=== PATIENT | male | born 1980 | race Caucasian/White ===

== ENCOUNTER 2016-08-20 17:55 | Emergency (ER) | payer OTHER ==
[2016-08-20] MEDS ORDERED: SODIUM CHLORIDE 0.9% 1,000 ML IV ONE (19:16)
[2016-08-20 19:27] LABS: Glucose,Whole Blood 115 mg/dL (75-99)
[2016-08-20 19:49] LABS: Basophils # (A) 0.1 k/uL (0-0.2); Basophils % (A) 1 %; CH 31.3; CHCM 34.1; Eosinophils # (A) 0.2 k/uL (0-0.7); Eosinophils % (A) 2 %; HCT 45.9 % (39.0-53.0); HDW 2.36; Luc # (Auto) 0.16; Luc % (Auto) 2; Lymphocytes % (A) 30 %; MCH 30.1 pg (25.0-35.0); MCHC 32.6 g/dL (31.0-37.0); MCV 92.3 fL (80.0-100.0); Mean Platelet Volume 7.4; Monocytes # (A) 0.7 k/uL (0-1.0); Monocytes % (A) 7 %; Neutrophils # (A) 5.9 k/uL (1.3-7.7); Neutrophils % (A) 58 %; RBC 4.97 m/uL (4.30-5.90); RDW 13.6 % (11.5-15.5); WBC 10.1 k/uL (3.8-10.6); WBC (Perox) 9.74
--- NOTE | 2016-08-20 19:49 | ED ---
General Adult HPI - General Chief complaint: Recheck/Abnormal Lab/Rx Stated complaint: alter mental status Time Seen by Provider: 08/20/16 18:52 Source: patient, family, RN notes reviewed Mode of arrival: ambulatory Limitations: no limitations - History of Present Illness Initial comments: Patient is a 35-year-old male presenting to the with chief complaint of altered mental status for approximately one day. Patient's mother and patient reports that he has recently switched on amitriptyline approximately one week ago to manage his bipolar depression. He states these been taking the medication as directed. He also takes Ativan and Effexor and he is concerned that his new addition of amitriptyline has caused an adverse side effect. Patient's mother reports that when she was sitting and talking to occasionally start talking the random subjects such as harming celebrity Paty Bazan. Patient's mother reports that he will have abnormal conversations with him will switch back to normal conversation. Patient also started to go on tangents about her complaints is having. He reported that he did have blood in his urine approximately 2 days ago he is concerned he had some kidney problems since starting his new medications. Reports she's had a history of kidney stones. He denies any abdominal pain or dysuria or hematuria today. Patient denies any suicidal or homicidal ideations. - Related Data Home Medications Medication Instructions Recorded Confirmed Benzocaine/Menthol Lozeng [Cepacol 1 lozenge MUCOUS MEM Q4HR PRN 08/20/16 lozenge] Multivitamins, Thera [Multivitamin] 1 tab PO DAILY 08/20/16 08/20/16 Previous Rx's Medication Instructions Recorded Amitriptyline HCl [Elavil] 10 mg PO ACHS #120 tab 08/08/16 Dicyclomine [Bentyl] 10 mg PO TID cap 08/08/16 LORazepam [Ativan] 0.5 mg PO ACHS #120 tab 08/08/16 Loperamide [Imodium] 2 mg PO QID PRN #30 cap 08/08/16 Losartan [Cozaar] 50 mg PO DAILY #30 tab 08/08/16 Venlafaxine HCl ER [Effexor XR] 75 mg PO DAILY #30 cap.er.24h 08/08/16 cloNIDine HCL [Catapres] 0.1 mg PO DAILY PRN #30 tab 08/08/16 Ketorolac [Toradol] 10 mg PO Q6HR #12 tab 08/20/16 Tamsulosin [Flomax] 0.4 mg PO DAILY #4 cap 08/20/16 Allergies Allergy/AdvReac Type Severity Reaction Status Date / Time cephalexin [From Keflex] Allergy Swelling Verified 08/20/16 19:56 hydrocodone Allergy Itching Verified 08/20/16 19:56 metaxalone [From Skelaxin] Allergy Rash/Hives Verified 08/20/16 19:56 NSAIDS (Non-Steroidal Allergy Rash/Hives Verified 08/20/16 19:56 Anti-Inflamma vancomycin Allergy Rash/Hives Verified 08/20/16 19:56 gabapentin AdvReac Unknown Verified 08/20/16 19:56 sulfamethoxazole AdvReac Nausea & Verified 08/20/16 19:56 [From Bactrim] Vomiting tramadol AdvReac Confusion Verified 08/20/16 19:56 trimethoprim [From Bactrim] AdvReac Nausea & Verified 08/20/16 19:56 Vomiting TIDE Allergy Dyspnea Uncoded 08/20/16 18:51 DUST AdvReac Mild Sneezing Uncoded 08/20/16 19:56 Review of Systems ROS Statement: Those systems with pertinent positive or pertinent negative responses have been documented in the HPI. ROS Other: All systems not noted in ROS Statement are negative. 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 POSSIBLE HEMORRHOIDS Past Anesthesia/Blood Transfusion Reactions: Motion Sickness Past Psychological History: ADD/ADHD, Anxiety, Depression, PTSD Additional Psychological History / Comment(s): HX OF DEPRESSION EPISODE R/T REACTION TO [facility], TRANSFERRED TO [facility]. Anxiety, Hx of attempted suicide by OD. Patient sees Dr. Cutler at [facility]. Smoking Status: Current every day smoker Past Alcohol Use History: Occasional Additional Past Alcohol Use History / Comment(s): Patient states he IS ON ANTABUSE LAST DRINK ABOUT 2 MONTHS AGO. HX OF ETOH ABUSE Patient smokes 1 pack per day for 14 years. Past Drug Use History: None Reported Additional Drug Use History / Comment(s): 12/04/13 DRUG OD ON TRAMADOL. - Past Family History Father Family Medical History: Coronary Artery Disease (CAD), Myocardial Infarction ([place] ) Additional Family Medical History / Comment(s): Father is 60 years of age and is status post 4 vessel CABG. Mother Family Medical History: No Reported History Additional Family Medical History / Comment(s): Mother is alive at age 72. General Exam - General Exam Comments Initial Comments: Patient is a anxious appearing 35-year-old male. He does not appear to be in any acute distress. Limitations: no limitations General appearance: alert, in no apparent distress Head exam: Present: atraumatic, normocephalic, normal inspection Eye exam: Present: normal appearance, EOMI, other (pinpoint pupils). Absent: scleral icterus, conjunctival injection, periorbital swelling ENT exam: Present: normal exam, normal oropharynx, mucous membranes moist, TM's normal bilaterally Neck exam: Present: normal inspection. Absent: tenderness, meningismus, lymphadenopathy Respiratory exam: Present: normal lung sounds bilaterally. Absent: respiratory distress, wheezes, rales, rhonchi, stridor Cardiovascular Exam: Present: regular rate, normal rhythm, normal heart sounds. Absent: systolic murmur, diastolic murmur, rubs, gallop, clicks GI/Abdominal exam: Present: soft, normal bowel sounds. Absent: distended, tenderness, guarding, rebound, rigid Extremities exam: Present: normal inspection, full ROM, normal capillary refill. Absent: tenderness, pedal edema, joint swelling, calf tenderness Back exam: Present: normal inspection Neurological exam: Present: alert, oriented X3, CN II-XII intact Psychiatric exam: Present: normal affect, normal mood Skin exam: Present: warm, dry, intact, normal color. Absent: rash Course Vital Signs 08/20/16 08/20/16 08/20/16 18:48 19:10 21:14 Temperature 97.0 F L Pulse Rate 118 H 91 Pulse Rate [ 118 H Roll Handler ] Respiratory 20 18 Rate Blood Pressure 141/75 126/75 O2 Sat by Pulse 98 96 Oximetry 08/20/16 22:30 Temperature 97 F L Pulse Rate 87 Pulse Rate [ Roll Handler ] Respiratory 20 Rate Blood Pressure 146/84 O2 Sat by Pulse 98 Oximetry - Reevaluation(s) Reevaluation #1: 08/20/16 20:19 Patient was reevaluated and states that he feels extremely tired. He states that he has been feeling in and out of it. 08/20/16 20:20 Medical Decision Making - Medical Decision Making Patient is a 35 year old male with one day of intermittent abnormal conversations and tangents which he is concerned is caused from taking his amitriptyline. Patient reports he has not had any other drugs and denies alcohol use. He states he has bipolar disorder and recently started amitriptiline. Patient also reports some complaints of blood in his urine. PAtient lab work is negative besides urinalysis. Patient's urinalysis did show moderate blood in the urine. Patient reports that he has a history of kidney stones. He will be discharged with flomax and toradol. I do not want to prescribe narcotics at this time due to the fact that narcotics could interfer with mental status changes as well. Patient had lucid conversations while in the [facility], but would go on tangents. It is likely that patient is suffering from a hypomanic state. EPS was called to evaluate patient and psychiatrist recommends to follow up with counselor tomorrow and to discontinue amitriptiline. Patient has an appointment with psychiatrist to adjust mediactions. Patient will be discharged and understands treatment plan and will comply. - Lab Data Result diagrams: 08/20/16 19:25 08/20/16 19:25 Lab Results 08/20/16 08/20/16 08/20/16 Range/Units 19:20 19:25 19:25 WBC 10.1 (3.8-10.6) k/uL RBC 4.97 (4.30-5.90) m/uL Hgb 15.0 (13.0-17.5) gm/dL Hct 45.9 (39.0-53.0) % MCV 92.3 (80.0-100.0) fL MCH 30.1 (25.0-35.0) pg MCHC 32.6 (31.0-37.0) g/dL RDW 13.6 (11.5-15.5) % Plt Count 248 (150-450) k/uL Neutrophils % 58 % Lymphocytes % 30 % Monocytes % 7 % Eosinophils % 2 % Basophils % 1 % Neutrophils # 5.9 (1.3-7.7) k/uL Lymphocytes # 3.0 (1.0-4.8) k/uL Monocytes # 0.7 (0-1.0) k/uL Eosinophils # 0.2 (0-0.7) k/uL Basophils # 0.1 (0-0.2) k/uL Sodium 140 (137-145) mmol/L Potassium 3.8 (3.5-5.1) mmol/L Chloride 101 (98-107) mmol/L Carbon Dioxide 25 (22-30) mmol/L Anion Gap 14 mmol/L BUN 11 (9-20) mg/dL Creatinine 0.90 (0.66-1.25) mg/dL Est GFR (MDRD) Af Amer >60 (>60 ml/min/1.73 sqM) Est GFR (MDRD) Non-Af >60 (>60 ml/min/1.73 sqM) Glucose 116 H (74-99) mg/dL POC Glucose (mg/dL) 115 H (75-99) mg/dL POC Glu Boat [employer]her ID [place] Calcium 9.9 (8.4-10.2) mg/dL Total Bilirubin 0.5 (0.2-1.3) mg/dL AST 22 (17-59) U/L ALT 35 (21-72) U/L Alkaline Phosphatase 69 (38-126) U/L Total Protein 6.8 (6.3-8.2) g/dL Albumin 4.5 (3.5-5.0) g/dL Urine Color Urine Appearance (Clear) Urine pH (5.0-8.0) Ur Specific [place] (1.001-1.035) Urine Protein (Negative) Urine Glucose (UA) (Negative) Urine Ketones (Negative) Urine Blood (Negative) Urine Nitrate (Negative) Urine Bilirubin (Negative) Urine Urobilinogen (<2.0) mg/dL Ur Leukocyte Esterase (Negative) Urine RBC (0-5) /hpf Urine WBC (0-5) /hpf Urine Bacteria (None) /hpf Urine Mucus (None) /hpf Urine Opiates Screen (NotDetected) Ur Oxycodone Screen (NotDetected) Urine Methadone Screen (NotDetected) Ur Propoxyphene Screen (NotDetected) Ur Barbiturates Screen (NotDetected) U Tricyclic Antidepress (NotDetected) Ur Phencyclidine Scrn (NotDetected) Ur Amphetamines Screen (NotDetected) U Methamphetamines Scrn (NotDetected) U Benzodiazepines Scrn (NotDetected) Urine Cocaine Screen (NotDetected) U Marijuana (THC) Screen (NotDetected) 08/20/16 Range/Units 19:25 WBC (3.8-10.6) k/uL RBC (4.30-5.90) m/uL Hgb (13.0-17.5) gm/dL Hct (39.0-53.0) % MCV (80.0-100.0) fL MCH (25.0-35.0) pg MCHC (31.0-37.0) g/dL RDW (11.5-15.5) % Plt Count (150-450) k/uL Neutrophils % % Lymphocytes % % Monocytes % % Eosinophils % % Basophils % % Neutrophils # (1.3-7.7) k/uL Lymphocytes # (1.0-4.8) k/uL Monocytes # (0-1.0) k/uL Eosinophils # (0-0.7) k/uL Basophils # (0-0.2) k/uL Sodium (137-145) mmol/L Potassium (3.5-5.1) mmol/L Chloride (98-107) mmol/L Carbon Dioxide (22-30) mmol/L Anion Gap mmol/L BUN (9-20) mg/dL Creatinine (0.66-1.25) mg/dL Est GFR (MDRD) Af Amer (>60 ml/min/1.73 sqM) Est GFR (MDRD) Non-Af (>60 ml/min/1.73 sqM) Glucose (74-99) mg/dL POC Glucose (mg/dL) (75-99) mg/dL POC Glu Boat Washer ID Calcium (8.4-10.2) mg/dL Total Bilirubin (0.2-1.3) mg/dL AST (17-59) U/L ALT (21-72) U/L Alkaline Phosphatase (38-126) U/L Total Protein (6.3-8.2) g/dL Albumin (3.5-5.0) g/dL Urine Color Light Yellow Urine Appearance Clear (Clear) Urine pH 5.5 (5.0-8.0) Ur Specific [place] 1.004 (1.001-1.035) Urine Protein Negative (Negative) Urine Glucose (UA) Negative (Negative) Urine Ketones Negative (Negative) Urine Blood Moderate H (Negative) Urine Nitrate Negative (Negative) Urine Bilirubin Negative (Negative) Urine Urobilinogen <2.0 (<2.0) mg/dL Ur Leukocyte Esterase Negative (Negative) Urine RBC 4 (0-5) /hpf Urine WBC 1 (0-5) /hpf Urine Bacteria Rare H (None) /hpf Urine Mucus Rare H (None) /hpf Urine Opiates Screen Not Detected (NotDetected) Ur Oxycodone Screen Not Detected (NotDetected) Urine Methadone Screen Not Detected (NotDetected) Ur Propoxyphene Screen Not Detected (NotDetected) Ur Barbiturates Screen Not Detected (NotDetected) U Tricyclic Antidepress Not Detected (NotDetected) Ur Phencyclidine Scrn Not Detected (NotDetected) Ur Amphetamines Screen Not Detected (NotDetected) U Methamphetamines Scrn Not Detected (NotDetected) U Benzodiazepines Scrn Detected H (NotDetected) Urine Cocaine Screen Not Detected (NotDetected) U Marijuana (THC) Screen Not Detected (NotDetected) 08/20/16 20:23 EKG shows sinus tachycardia. Ventricular 105 bpm. MA interval 132 ms. QRS duration 90 ms. No evidence of ST elevation or T-wave inversion. No evidence of atrial or ventricular arrhythmias. - Radiology Data Radiology results: report reviewed KUB and chest x-ray showed no evidence of any acute process. Disposition Clinical Impression: Altered awareness, transient, History of kidney stones Disposition: HOME SELF-CARE Condition: Good Instructions: Altered Mental Status (ED), Kidney Stones (ED) Additional Instructions: Patient started to discontinue Elavil. Follow-up with counselor tomorrow. Psychiatrist as directed. Return to the [facility] if any alarming signs or symptoms occur. Take Flomax and Toradol as directed. Prescriptions: Ketorolac [Toradol] 10 mg PO Q6HR #12 tab Tamsulosin [Flomax] 0.4 mg PO DAILY #4 cap Referrals: None,Stated [Primary Care Provider] - 1-2 days Time of Disposition: 22:18
[2016-08-20 19:58] LABS: Appearance,Urine Clear (Clear); Bacteria,Urine Rare /hpf; Bilirubin,Urine Negative (Negative); Glucose,Urine (UA) Negative (Negative); Ketones,Urine Negative (Negative); Leukocyte Esterase,Urine Negative (Negative); Mucus,Urine Rare /hpf; Nitrite,Urine Negative (Negative); PH, Urine 5.5 (5.0-8.0); Particle Count 1142; Protein,Urine Negative (Negative); RBC,Urine 4 /hpf (0-5); Specific Gravity,Urine 1.004 (1.001-1.035); UA Billing (MACRO vs. MICRO) MICRO; Urobilinogen,Urine <2.0 mg/dL (<2.0); WBC,Urine 1 /hpf (0-5)
[2016-08-20 19:59] LABS: ALT 35 U/L (21-72); AST 22 U/L (17-59); Alkaline Phosphatase 69 U/L (38-126); Anion Gap 14 mmol/L; Blood Urea Nitrogen 11 mg/dL (9-20); Calcium 9.9 mg/dL (8.4-10.2); Carbon Dioxide 25 mmol/L (22-30); Chloride 101 mmol/L (98-107); Glucose 116 mg/dL (74-99); Non-African American GFR(MDRD) >60 (>60 ml/min/1.73 sqM); Potassium 3.8 mmol/L (3.5-5.1); Sodium 140 mmol/L (137-145); Total Bilirubin 0.5 mg/dL (0.2-1.3); Total Protein 6.8 g/dL (6.3-8.2)
--- NOTE | 2016-08-20 20:13 | XR ---
EXAMINATION TYPE: XR chest 2V DATE OF EXAM: 08/20/2016 8:05 PM COMPARISON: September 26, 2015 HISTORY: Shortness of breath TECHNIQUE: Frontal and lateral views of the chest are obtained. FINDINGS: There is no focal air space opacity, pleural effusion, or pneumothorax seen. The cardiac silhouette size is within normal limits. The osseous structures are intact. IMPRESSION: No acute cardiopulmonary process.
--- NOTE | 2016-08-20 20:14 | XR ---
EXAMINATION TYPE: XR KUB DATE OF EXAM: 08/20/2016 8:05 PM COMPARISON: April 06, 2016 HISTORY: Pain TECHNIQUE: Single supine KUB image of the abdomen is obtained FINDINGS: Small bowel demonstrates no evidence for dilatation or air fluid levels. Gas and fecal material is seen in non-distended colon. No convincing evidence for pneumoperitoneum. No unusual calcifications. The lung bases are clear. The osseous structures are intact. IMPRESSION: 1. Overall nonobstructive bowel gas pattern.
[2016-08-20] MEDS ORDERED: KETOROLAC 30 MG/ML 1 ML VIAL IVP STA (22:29)
[2016-08-20 22:48] VITALS: BP 146/84; PULSE 87; RESP 20; TEMP 97
== END 2016-08-20 22:30 | disposition home or self-care (01) ==
LOC: EC 17:55
DX: R40.4 Transient alteration of awareness (principal); F31.9 Bipolar disorder, unspecified; R31.9 Hematuria, unspecified; Z87.442 Personal history of urinary calculi; F17.200 Nicotine dependence, unspecified, uncomplicated; I10 Essential (primary) hypertension; F41.9 Anxiety disorder, unspecified; F43.10 Post-traumatic stress disorder, unspecified; Z79.899 Other long term (current) drug therapy; Z88.1 Allergy status to other antibiotic agents; Z88.2 Allergy status to sulfonamides; Z88.5 Allergy status to narcotic agent; Z88.6 Allergy status to analgesic agent; Z88.8 Allergy status to other drugs, medicaments and biological substances; Z86.14 Personal history of Methicillin resistant Staphylococcus aureus infection
CPT/HCPCS: 36415; 71020; 74000; 80053; 80306; 81001; 82075; 85025; 93005; 96360; 99285

== ENCOUNTER 2016-09-05 11:52 | Emergency (ER) | payer OTHER ==
[2016-09-05 12:00] VITALS: RESP 18; TEMP 98
--- NOTE | 2016-09-05 13:16 | XR ---
EXAMINATION TYPE: XR chest 2V DATE OF EXAM: 09/05/2016 12:56 PM COMPARISON: 08/20/16 HISTORY: cough TECHNIQUE: Frontal and lateral views of the chest are obtained. FINDINGS: There is no focal air space opacity, pleural effusion, or pneumothorax seen. The cardiac silhouette size is within normal limits. The osseous structures are intact. IMPRESSION: No acute cardiopulmonary process.
--- NOTE | 2016-09-05 13:18 | ED ---
General Adult HPI - General Chief complaint: Recheck/Abnormal Lab/Rx Stated complaint: POSS OVERDOSE Time Seen by Provider: 09/05/16 12:05 Source: patient, RN notes reviewed Mode of arrival: ambulatory Limitations: no limitations - History of Present Illness Initial comments: Patient is a 35-year-old male who presents emergency room today with multiple complaints. Patient does admit to cough congestion over the last 7 days. He does admit to sputum production as been yellow in color. He states he wanted to have this checked out. He also admits that he comes from his psychiatrist office was given a prescription for Ativan 0.5 mg. Patient states he took 2 pills and did not like how it made him feel. He states that he felt forgetful and out of it. Patient states he just had this prescription filled today. Patient denies any other complains. Patient's mother did give further information away from bedside stating that he has prescription filled yesterday 120 and had taken the entire bottle. States that he was very forgetful and acting unusual yesterday. States Dr. Pope office did notify her to bring him here in the emergency room for evaluation. Patient denies any recent fever, chills, shortness of breath, chest pain, back pain, abdominal pain, nausea or vomiting, numbness or tingling, dysuria or hematuria, constipation or diarrhea, headaches or visual changes, or any other complaints. - Related Data Home Medications Medication Instructions Recorded Confirmed LORazepam [Ativan] 0.5 mg PO TID 09/05/16 09/05/16 cloNIDine HCL [Catapres] 0.1 mg PO DAILY 09/05/16 09/05/16 Previous Rx's Medication Instructions Recorded Loperamide [Imodium] 2 mg PO QID PRN #30 cap 08/08/16 Losartan [Cozaar] 50 mg PO DAILY #30 tab 08/08/16 Venlafaxine HCl ER [Effexor XR] 75 mg PO DAILY #30 cap.er.24h 08/08/16 Tamsulosin [Flomax] 0.4 mg PO DAILY #4 cap 08/20/16 Allergies Allergy/AdvReac Type Severity Reaction Status Date / Time cephalexin [From Keflex] Allergy Swelling Verified 09/05/16 12:17 hydrocodone Allergy Itching Verified 09/05/16 12:17 metaxalone [From Skelaxin] Allergy Rash/Hives Verified 09/05/16 12:17 NSAIDS (Non-Steroidal Allergy Rash/Hives Verified 09/05/16 12:17 Anti-Inflamma vancomycin Allergy Rash/Hives Verified 09/05/16 12:17 gabapentin AdvReac Unknown Verified 09/05/16 12:17 sulfamethoxazole AdvReac Nausea & Verified 09/05/16 12:17 [From Bactrim] Vomiting tramadol AdvReac Confusion Verified 09/05/16 12:17 trimethoprim [From Bactrim] AdvReac Nausea & Verified 09/05/16 12:17 Vomiting TIDE Allergy Dyspnea Uncoded 09/05/16 12:00 DUST AdvReac Mild Sneezing Uncoded 09/05/16 12:00 Review of Systems ROS Statement: Those systems with pertinent positive or pertinent negative responses have been documented in the HPI. ROS Other: All systems not noted in ROS Statement are negative. Past Medical History Past Medical History: Hypertension, Musculoskeletal Disorder, Seizure Disorder Additional Past Medical History / Comment(s): HX SEIZURE X2, D/T LOW K+ LEVEL 2012 AND SEIZURE 2013., KIDNEY STONE, BACK PAIN, MOUTH TUMORS, degenerative disc disease of the cervical spine History of Any Multi-Drug Resistant Organisms: MRSA Date of last positivie culture/infection: 06/19/16 MDRO Source:: right leg Past Surgical History: Cholecystectomy, Hernia Repair Additional Past Surgical History / Comment(s): 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 POSSIBLE HEMORRHOIDS Past Anesthesia/Blood Transfusion Reactions: Motion Sickness Past Psychological History: ADD/ADHD, Anxiety, Depression, PTSD Additional Psychological History / Comment(s): HX OF DEPRESSION EPISODE R/T REACTION TO [facility], TRANSFERRED TO [facility]. Anxiety, Hx of attempted suicide by OD. Patient sees Dr. Cutler at [facility]. Smoking Status: Current every day smoker Past Alcohol Use History: Occasional Additional Past Alcohol Use History / Comment(s): Patient states he IS ON ANTABUSE LAST DRINK ABOUT 2 MONTHS AGO. HX OF ETOH ABUSE Patient smokes 1 pack per day for 14 years. Past Drug Use History: None Reported Additional Drug Use History / Comment(s): 12/04/13 DRUG OD ON TRAMADOL. - Past Family History Father Family Medical History: Coronary Artery Disease (CAD), Myocardial Infarction ([place] ) Additional Family Medical History / Comment(s): Father is 60 years of age and is status post 4 vessel CABG. Mother Family Medical History: No Reported History Additional Family Medical History / Comment(s): Mother is alive at age 72. General Exam - General Exam Comments Initial Comments: General: The patient is awake and alert, in no distress, and does not appear acutely ill. Eye: Pupils are equal, round and reactive to light, extra-ocular movements are intact. No nystagmus. There is normal conjunctiva bilaterally. No signs of icterus. Ears, nose, mouth and throat: There are moist mucous membranes and no oral lesions. Neck: The neck is supple, there is no tenderness or JVD. Cardiovascular: There is a regular rate and rhythm. No murmur, rub or gallop is appreciated. Respiratory: Lungs are clear to auscultation, respirations are non-labored, breath sounds are equal. No wheezes, stridor, rales, or rhonchi. Gastrointestinal: Soft, non-distended, non-tender abdomen without masses or organomegaly noted. There is no rebound or guarding present. No CVA tenderness. Bowel sounds are unremarkable. Musculoskeletal: Normal ROM, no tenderness. Strength 5/5. Sensation intact. Pulses equal bilaterally 2+. Neurological: A&O x 3. CN II-XII intact, There are no obvious motor or sensory deficits. Coordination appears grossly intact. Speech is normal. Skin: Skin is warm and dry and no rashes or lesions are noted. Psychiatric: Cooperative. Limitations: no limitations Course Vital Signs 09/05/16 09/05/16 11:55 13:00 Temperature 98.0 F Pulse Rate 121 H Respiratory 18 Rate Blood Pressure 136/62 168/88 O2 Sat by Pulse 98 Oximetry Medical Decision Making - Medical Decision Making Patient has been seen here in the emergency room by mental health. They recommend the patient can follow-up with the outpatient. They believe it is a substance abuse issue. Patient is not suicidal. He is requesting pain medication here in the emergency room. Patient advised that we cannot give him any narcotics. Patient will be discharged home. Disposition Clinical Impression: Substance abuse Disposition: HOME SELF-CARE Condition: Good Instructions: Polysubstance Abuse (ED) Additional Instructions: Please follow-up with psychiatrist as discussed. Please follow-up family doctor over the next 2 days for any pain medicines as needed. Please return to emergency room if any symptoms increase or worsen or for any other concerns. Time of Disposition: 15:30
[2016-09-05 15:50] VITALS: BP 135/83; PULSE 103
== END 2016-09-05 15:49 | disposition home or self-care (01) ==
LOC: EC 11:52
DX: F19.10 Other psychoactive substance abuse, uncomplicated (principal); I10 Essential (primary) hypertension; G40.909 Epilepsy, unspecified, not intractable, without status epilepticus; F41.9 Anxiety disorder, unspecified; F90.9 Attention-deficit hyperactivity disorder, unspecified type; F17.200 Nicotine dependence, unspecified, uncomplicated; Z79.899 Other long term (current) drug therapy; Z88.5 Allergy status to narcotic agent; Z88.8 Allergy status to other drugs, medicaments and biological substances; Z88.2 Allergy status to sulfonamides; Z91.048 Other nonmedicinal substance allergy status; Z88.1 Allergy status to other antibiotic agents
CPT/HCPCS: 71020; 80306; 82075; 99283

== ENCOUNTER 2016-10-02 19:55 | Inpatient (IN) | payer MEDICAID, OTHER ==
--- NOTE | 2016-10-02 20:26 | ED ---
Psych HPI - General Chief Complaint: Psychiatric Symptoms Stated Complaint: Suicidal Time Seen by Provider: 10/02/16 20:04 Source: patient Mode of arrival: ambulatory - History of Present Illness Initial Comments: This patient is a 35-year-old man who presents because he has been having some suicidal ideation. Patient states that he has history of previous prescription medication addiction, and he is concerned that he is having a recurrence of this. Patient states that earlier in the morning he was feeling very depressed and in fact suicidal. The patient states that he left his home and [place] to [place] with the thought that he may jump in. The patient states that his mother however had followed him and prevented him from doing so. MD Complaint: suicidal ideation, feels depressed -: days(s) Associated Psychiatric Symptoms: depression, suicidal ideation History of same: Yes Quality: constant Improves With: none Worsens With: drug use Context: recent drug abuse Associated Symptoms: denies other symptoms Treatments Prior to Arrival: none If Self Harm: has plan - Related Data Home Medications Medication Instructions Recorded Confirmed LORazepam [Ativan] 0.5 mg PO Q6H PRN 09/05/16 10/03/16 cloNIDine HCL [Catapres] 0.1 mg PO HS 09/05/16 10/03/16 Amoxicillin 500 mg PO Q12HR 10/02/16 10/02/16 Venlafaxine HCl [Effexor XR] 37.5 mg PO DAILY 10/02/16 10/03/16 traMADol HCL [Ultram] 50 mg PO Q6H PRN 10/02/16 10/03/16 Previous Rx's Medication Instructions Recorded Loperamide [Imodium] 2 mg PO QID PRN #30 cap 08/08/16 Losartan [Cozaar] 50 mg PO DAILY #30 tab 08/08/16 Tamsulosin [Flomax] 0.4 mg PO DAILY #4 cap 08/20/16 Allergies Allergy/AdvReac Type Severity Reaction Status Date / Time cephalexin [From Keflex] Allergy Swelling Verified 10/03/16 03:08 hydrocodone Allergy Itching Verified 10/03/16 03:08 metaxalone [From Skelaxin] Allergy Rash/Hives Verified 10/03/16 03:08 NSAIDS (Non-Steroidal Allergy Rash/Hives Verified 10/03/16 03:08 Anti-Inflamma vancomycin Allergy Rash/Hives Verified 10/03/16 03:08 gabapentin AdvReac Unknown Verified 10/03/16 03:08 sulfamethoxazole AdvReac Nausea & Verified 10/03/16 03:08 [From Bactrim] Vomiting trimethoprim [From Bactrim] AdvReac Nausea & Verified 10/03/16 03:08 Vomiting TIDE Allergy Dyspnea Uncoded 10/03/16 03:08 DUST AdvReac Mild Sneezing Uncoded 10/03/16 03:08 Review of Systems ROS Statement: Those systems with pertinent positive or pertinent negative responses have been documented in the HPI. ROS Other: All systems not noted in ROS Statement are negative. Constitutional: Denies: fever, weakness Respiratory: Denies: cough, dyspnea Cardiovascular: Denies: chest pain, syncope Gastrointestinal: Denies: abdominal pain, vomiting, diarrhea Musculoskeletal: Denies: back pain Skin: Denies: rash Neurological: Denies: headache, weakness, numbness Psychiatric: Reports: anxiety, depression, suicidal thoughts. 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 POSSIBLE HEMORRHOIDS Past Anesthesia/Blood Transfusion Reactions: Motion Sickness Past Psychological History: ADD/ADHD, Anxiety, Depression, PTSD Additional Psychological History / Comment(s): HX OF DEPRESSION EPISODE R/T REACTION TO [facility], TRANSFERRED TO [facility]. Anxiety, Hx of attempted suicide by OD. Patient sees Dr. Cutler at [facility]. Smoking Status: Current every day smoker Past Alcohol Use History: Occasional Additional Past Alcohol Use History / Comment(s): Patient states he IS ON ANTABUSE LAST DRINK ABOUT 2 MONTHS AGO. HX OF ETOH ABUSE Patient smokes 1 pack per day for 14 years. Past Drug Use History: None Reported Additional Drug Use History / Comment(s): 12/04/13 DRUG OD ON TRAMADOL. - Past Family History Father Family Medical History: Coronary Artery Disease (CAD), Myocardial Infarction ([place] ) Additional Family Medical History / Comment(s): Father is 60 years of age and is status post 4 vessel CABG. Mother Family Medical History: No Reported History Additional Family Medical History / Comment(s): Mother is alive at age 72. General Exam Limitations: no limitations General appearance: alert, anxious Head exam: Present: atraumatic, normocephalic Eye exam: Present: normal appearance. Absent: scleral icterus, conjunctival injection Respiratory exam: Present: normal lung sounds bilaterally. Absent: respiratory distress, wheezes, rales, rhonchi, stridor Cardiovascular Exam: Present: regular rate, normal rhythm, normal heart sounds. Absent: systolic murmur, diastolic murmur, rubs, gallop GI/Abdominal exam: Present: soft. Absent: distended, tenderness, guarding Extremities exam: Present: normal inspection Neurological exam: Present: alert, normal gait Psychiatric exam: Present: depressed, anxious, suicidal ideation. Absent: agitated, flat affect, manic, homicidal ideation Skin exam: Present: warm, dry, intact, normal color. Absent: rash Course Vital Signs 10/02/16 10/02/16 19:59 23:30 Temperature 99 F 98.9 F Pulse Rate 99 Pulse Rate [ 112 H Right] Respiratory 16 20 Rate Blood Pressure 143/77 Blood Pressure 154/104 [Right Arm] O2 Sat by Pulse 100 Oximetry Medical Decision Making - Lab Data Lab Results 10/02/16 10/02/16 Range/Units 20:30 20:30 Urine Color Yellow Urine Appearance Clear (Clear) Urine pH 5.5 (5.0-8.0) Ur Specific [place] 1.016 (1.001-1.035) Urine Protein Negative (Negative) Urine Glucose (UA) Negative (Negative) Urine Ketones Negative (Negative) Urine Blood Small H (Negative) Urine Nitrate Negative (Negative) Urine Bilirubin Negative (Negative) Urine Urobilinogen <2.0 (<2.0) mg/dL Ur Leukocyte Esterase Trace H (Negative) Urine RBC <1 (0-5) /hpf Urine WBC 1 (0-5) /hpf Amorphous Sediment Rare H (None) /hpf Urine Mucus Rare H (None) /hpf Urine Opiates Screen Detected H (NotDetected) Ur Oxycodone Screen Not Detected (NotDetected) Urine Methadone Screen Not Detected (NotDetected) Ur Propoxyphene Screen Not Detected (NotDetected) Ur Barbiturates Screen Not Detected (NotDetected) U Tricyclic Antidepress Not Detected (NotDetected) Ur Phencyclidine Scrn Not Detected (NotDetected) Ur Amphetamines Screen Not Detected (NotDetected) U Methamphetamines Scrn Not Detected (NotDetected) U Benzodiazepines Scrn Detected H (NotDetected) Urine Cocaine Screen Not Detected (NotDetected) U Marijuana (THC) Screen Not Detected (NotDetected) Disposition Clinical Impression: Suicidal ideation, Depression Disposition: ADMITTED IP TO THIS HOSP Condition: Fair
[2016-10-02] MEDS ORDERED: LORazepam 1 MG TAB PO STA (21:16)
[2016-10-02] MEDS ORDERED: ZIPRASIDONE 20 MG VIAL IM PRN (22:34)
[2016-10-02] MEDS ORDERED: MAG HYDROX/AL HYDROX/SIMETH 30 ML CUP PO PRN (22:34)
[2016-10-02] MEDS ORDERED: MAGNESIUM HYDROXIDE 2,400 MG/10 ML CUP PO PRN (22:34)
[2016-10-02] MEDS ORDERED: traMADol 50 MG TAB PO PRN (22:36)
[2016-10-02 23:08] LABS: Amorphous Sediment,Urine Rare /hpf; Appearance,Urine Clear (Clear); Bilirubin,Urine Negative (Negative); Glucose,Urine (UA) Negative (Negative); Ketones,Urine Negative (Negative); Leukocyte Esterase,Urine Trace (Negative); Mucus,Urine Rare /hpf; Nitrite,Urine Negative (Negative); PH, Urine 5.5 (5.0-8.0); Particle Count 909; Protein,Urine Negative (Negative); RBC,Urine <1 /hpf (0-5); Specific Gravity,Urine 1.016 (1.001-1.035); UA Billing (MACRO vs. MICRO) MICRO; Urobilinogen,Urine <2.0 mg/dL (<2.0); WBC,Urine 1 /hpf (0-5)
[2016-10-03] MEDS: cloNIDine HCL 0.1 MG TAB PO SCH ×2 (01:23→21:21)
[2016-10-03 03:32] VITALS: BMI 29.2
[2016-10-03] MEDS: VENLAFAXINE HCL ER 37.5 MG CAP PO SCH (08:09)
[2016-10-03] MEDS: TAMSULOSIN 0.4 MG CAP.ER.24H PO SCH (08:09)
[2016-10-03] MEDS: LOSARTAN 50 MG TAB PO SCH (08:10)
[2016-10-03] MEDS: LORazepam 0.5 MG TAB PO PRN ×4 (08:11→21:24)
[2016-10-03] MEDS ORDERED: NICOTINE 14MG/24HR PATCH TRANSDERM SCH (09:00)
[2016-10-03] MEDS ORDERED: cloNIDine HCL 0.1 MG TAB PO SCH (09:00)
[2016-10-03] MEDS ORDERED: AMOXICILLIN 500 MG CAP PO SCH (09:00)
[2016-10-03 09:05] LABS: Basophils % (A) 1 %; CH 31.2; CHCM 33.1; Eosinophils # (A) 0.2 k/uL (0-0.7); Eosinophils % (A) 3 %; HCT 43.8 % (39.0-53.0); HDW 2.35; HGB 14.4 gm/dL (13.0-17.5); Luc # (Auto) 0.11; Luc % (Auto) 1; Lymphocytes # (A) 2.3 k/uL (1.0-4.8); Lymphocytes % (A) 30 %; MCH 31.2 pg (25.0-35.0); MCHC 32.9 g/dL (31.0-37.0); MCV 94.8 fL (80.0-100.0); Mean Platelet Volume 7.7; Monocytes # (A) 0.3 k/uL (0-1.0); Monocytes % (A) 4 %; Neutrophils # (A) 4.6 k/uL (1.3-7.7); Neutrophils % (A) 61 %; RBC 4.62 m/uL (4.30-5.90); RDW 13.5 % (11.5-15.5); WBC 7.6 k/uL (3.8-10.6); WBC (Perox) 7.71
[2016-10-03 09:31] LABS: ALT 21 U/L (21-72); AST 21 U/L (17-59); Alkaline Phosphatase 68 U/L (38-126); Anion Gap 11 mmol/L; Blood Urea Nitrogen 11 mg/dL (9-20); Calcium 9.4 mg/dL (8.4-10.2); Carbon Dioxide 27 mmol/L (22-30); Chloride 104 mmol/L (98-107); Glucose 112 mg/dL (74-99); Non-African American GFR(MDRD) >60 (>60 ml/min/1.73 sqM); Potassium 4.2 mmol/L (3.5-5.1); Sodium 142 mmol/L (137-145); Total Bilirubin 0.4 mg/dL (0.2-1.3); Total Protein 6.5 g/dL (6.3-8.2)
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
[2016-10-03] MEDS: NICOTINE 21MG/24HR PATCH TRANSDERM SCH (12:05)
[2016-10-03] MEDS: traMADol 50 MG TAB PO PRN (16:28)
[2016-10-03] MEDS: ACETAMINOPHEN TAB 325 MG TAB PO PRN (21:24)
[2016-10-04] MEDS: traMADol 50 MG TAB PO PRN ×2 (03:07→09:09)
[2016-10-04 03:09] VITALS: BP 111/71; PULSE 85; RESP 16; TEMP 97.7
[2016-10-04] MEDS: LORazepam 0.5 MG TAB PO PRN ×2 (05:57→10:58)
[2016-10-04] MEDS: ACETAMINOPHEN TAB 325 MG TAB PO PRN (05:57)
--- NOTE | 2016-10-04 07:53 | CONS ---
DATE OF CONSULTATION: CHIEF COMPLAINT: Acute depression. HISTORY OF PRESENT ILLNESS: This is a 35-year-old male with past medical history significant for anxiety, depression, insomnia presents to the hospital with worsening depression and anxiety. Patient was essentially admitted back in July for the same reason with suicidal attempt. Patient currently is denying chest pain, shortness breath, nausea, vomiting, abdominal pain, dizziness, lightheadedness, or blurry vision. Patient is complaining of chronic pain and said that he used to take Ultram at home and that is the only thing that works as he tried [place], which was not working and he thinks he got allergy to it. Patient also said that he takes a lot of medication for his insomnia and it was very hard for him to sleep that is why he presented to the hospital. REVIEW OF SYSTEMS: All 14 systems reviewed and negative except as above. PAST MEDICAL HISTORY: 1. Hypertension. 2. Musculoskeletal disorder. 3. History of seizure disorder. 4. History of kidney stones. 5. Chronic back pain. 6. Mouth tumor. 7. Degenerative disc of the cervical spine. PAST SURGICAL HISTORY: 1. Cholecystectomy. 2. Hernia repair. 3. Benign tumor removed from hard palate. 4. Epidural steroid injection. 5. Cervical spine surgery anterior approach. 6. Lung surgery as an infant. FAMILY HISTORY: Reviewed and negative. HOME MEDICATIONS: 1. Cozaar 50 mg daily. 2. Effexor daily. 3. Clonidine 0.2 mg at nighttime. 4. Ultram 100 mg every ( ) hours as needed. SOCIAL HISTORY: Patient smokes 1 pack per day, trying to quit. Denied current heavy alcohol or drug abuse. PHYSICAL EXAMINATION: VITAL SIGNS: Reviewed and stable. HEENT: Atraumatic, normocephalic. PERRLA. NECK: Supple, no masses or thyromegaly. Positive for scar on the right anterior side of the neck. LUNGS: Clear to auscultation bilaterally. HEART: Normal S1, S2. ABDOMEN: Soft, no tenderness. Positive bowel sounds in all 4 quadrants. LOWER EXTREMITIES: No edema. SKIN: No new rash. NEURO: Cranial nerves 2 through 12 intact. Normal deep tendon reflexes and sensation. IMAGING AND LABS: Reviewed. ASSESSMENT AND PLAN: 1. Chronic back pain and cervical spine pain, status post laminectomy. We will continue with Ultram 100 mg 3 times daily as needed. Patient requested 100 mg every 4 hours and I told him that will exceed the dose and Ultram can increase risks of seizure. Patient is agreeable and we will monitor Ultram. Patient said that he has been tolerating the medication for a long time. 2. History of seizure. Patient off medication. 3. Nicotine dependence. Counseled patient regarding smoking cessation, provide nicotine patch during this hospital stay. 4. Anxiety, depression per your management. 5. Insomnia per your management.
[2016-10-04] MEDS: TAMSULOSIN 0.4 MG CAP.ER.24H PO SCH (08:46)
[2016-10-04] MEDS: NICOTINE 21MG/24HR PATCH TRANSDERM SCH (08:46)
[2016-10-04] MEDS: VENLAFAXINE HCL ER 37.5 MG CAP PO SCH (08:47)
[2016-10-04] MEDS: LOSARTAN 50 MG TAB PO SCH (08:47)
[2016-10-04] MEDS ORDERED: traMADol 50 MG TAB PO PRN (09:30)
--- NOTE | 2016-10-04 09:46 | P.DS ---
Providers Date of admission: 10/02/16 22:32 Expected date of discharge: 10/04/16 Attending physician: Anselmo Rodriguez Consults: 10/02/16 22:34 Consult Physician Routine Consulting Provider: Guille Paula Consult Reason/Comments: follow up H & P Do you want consulting provider notified?: Yes, Notify in am Primary care physician: Stated None - Discharge Diagnosis(es) (1) Major depressive disorder, recurrent Current Visit: Yes Status: Acute Priority: High (2) Generalized anxiety disorder Current Visit: Yes Status: Acute Priority: High (3) Alcohol use disorder Current Visit: Yes Status: Acute Priority: High (4) Opiate dependence Current Visit: Yes Status: Acute Priority: High Hospital Course: Brief summary of admission note: This patient is a 35-year-old single male who was admitted to the mental health unit through the emergency room with reported suicidal ideation. The patient was brought in by family as they [place] him [place] and they were concerned he would attempt suicide by jumping in. Apparently the patient was acutely agitated as he had purchased a bottle of alcohol he reports his family took it from him and he left the home to go for a walk. He stated to me yesterday there was not his intent to commit suicide but that is how they perceived it. In the emergency room he did voice suicidal thoughts. Subsequently he was admitted. The patient states he's been struggling with alcohol use but he had been sober for approximate 5 weeks. He presented wanting to go back to inpatient chemical dependency treatment. He reports a history of opiate use disorder and states he hasn't used any however he took a [place] prior to coming into the hospital. He reported severe tooth pain and has been on Ultram. Summary of hospital course: The patient was admitted to the mental health unit he signed in voluntarily. We reviewed his medication options and presenting symptoms. He has been maintained on a very low dose of Effexor XR and is on scheduled Ativan. We discussed the possibility of titrating the Effexor XR further and he refused stating it would insight side effects. We discussed trying to augment with buspirone to reduce anxiety symptoms but he refused. We discussed trying to initiate naltrexone to help decrease cravings related to alcohol and opiate use. He refused to consider that medication. The patient reports he is content on his current dose as long as he Ativan is continued in Ultram is continued. He has not established with an outpatient primary care physician and was encouraged to do so. He is trying to seek assistance at a dental clinic for his toothache. Upon admission yesterday the patient stated he had no suicidal ideation intent or plan. His goal was to schedule for inpatient chemical dependency treatment in social work is assisting him with that. The patient is known to operationalize borderline personality disorder strategies. Attempts were made to offer suggestions for cognitive reframing. The patient demonstrated no agitated behavior. He did undergo a routine medical consultation. Social work has been in contact with his mother who will present for a family meeting this morning. The patient states he is safe to be discharged and assures us that he will make sure he gets to [facility] for his inpatient chemical dependency treatment. Mental status exam: The patient is alert he seated calmly hygiene grooming are adequate. Speech is fluent nonpressured spontaneous. Thought process is linear although he does make several comments related to his tooth pain and how that requires treatment with Ultram. He reports his mood is better he reports no hopelessness thinking or any suicidal ideation intent or plan. He reports no homicidal ideation. He is endorsing no auditory or visual hallucinations there is no report a specific delusions. There is no evidence of psychosis. He does not present hypomanic or manic. Insight and judgment grossly intact. He remains cognitively intact he is oriented to person place and date. There is no verbal or physical aggressiveness observed. Impressions 1. Major depressive disorder recurrent moderate, generalized anxiety disorder, alcohol use disorder, opiate use disorder, rule out benzodiazepine use disorder 2. Borderline personality disorder traits 3. History of cervical spine pathology, reported tooth pain 4. Psychosocial dysfunction due to underdeveloped coping skills an ongoing struggle with use of substances Plan: The patient is being discharged mental health unit today. There is no imminent safety risk he is appropriate for transition back to outpatient care. He has contacted [facility] and we are awaiting the placement date. Social work is assisting. Social work will facilitate a support meeting involving his mother this morning prior to discharge. The patient was not amenable to psychotropic medication changes I suggested. He will remain on Effexor XR 37.5 mg daily Ativan 0.5 mg every [address] hours [address] prescribed by Dr. Monte. He is urged to consider use of buspirone and naltrexone. The patient's use of benzodiazepine should be carefully monitored. He is instructed to schedule with a primary care physician immediately after discharge. I will be providing 2 days worth of Ultram. The patient states that if he does not have enough pain medication "I will just come back here again". He is reminded that with insurance he should be able to seek treatment with a primary care physician soon. He is reminded that inappropriate use of substances will elevate his safety risk. Patient Condition at Discharge: Stable Plan - Discharge Summary New Discharge Prescriptions: Nicotine 21Mg/24Hr Patch [Habitrol] 1 patch TRANSDERM DAILY #14 patch traMADol HCl [Ultram] 50 mg PO TID PRN #6 tab PRN Reason: Pain Discharge Medication List Losartan [Cozaar] 50 mg PO DAILY #30 tab 08/08/16 [Rx] Tamsulosin [Flomax] 0.4 mg PO DAILY #4 cap 08/20/16 [Rx] LORazepam [Ativan] 0.5 mg PO Q6H PRN 09/05/16 [History] cloNIDine HCL [Catapres] 0.1 mg PO HS 09/05/16 [History] Venlafaxine HCl [Effexor XR] 37.5 mg PO DAILY 10/02/16 [History] Nicotine 21Mg/24Hr Patch [Habitrol] 1 patch TRANSDERM DAILY #14 patch 10/04/16 [ Rx] traMADol HCl [Ultram] 50 mg PO TID PRN #6 tab 10/04/16 [Rx] Follow up Appointment(s)/Referral(s): [facility] [Outside] - 10/09/16 9:00 am (10/09/16 at 900 with intake) None,Stated [Primary Care Provider] - 1 Week
== END 2016-10-04 11:48 | disposition home or self-care (01) | DRG 885 ==
LOC: EC 19:55 → 3MHU 22:32
PROVIDERS: ADMIT Psychiatry & Neurology Psychiatry; ATTEND Psychiatry & Neurology Psychiatry
DX: F33.1 Major depressive disorder, recurrent, moderate (principal); F11.20 Opioid dependence, uncomplicated; R45.851 Suicidal ideations; I10 Essential (primary) hypertension; G89.29 Other chronic pain; G47.00 Insomnia, unspecified; K08.89 Other specified disorders of teeth and supporting structures; F17.210 Nicotine dependence, cigarettes, uncomplicated; G40.909 Epilepsy, unspecified, not intractable, without status epilepticus; F41.1 Generalized anxiety disorder; F43.10 Post-traumatic stress disorder, unspecified; F60.3 Borderline personality disorder; Z88.6 Allergy status to analgesic agent; Z88.1 Allergy status to other antibiotic agents; Z88.5 Allergy status to narcotic agent; Z88.2 Allergy status to sulfonamides; Z81.8 Family history of other mental and behavioral disorders; Z82.49 Family history of ischemic heart disease and other diseases of the circulatory system; Z91.5 Personal history of self-harm
CPT/HCPCS: 80053; 80306; 81001; 82075; 84443; 85025; 99285

== ENCOUNTER 2016-11-01 18:41 | Emergency (ER) | payer OTHER ==
[2016-11-01 18:56] VITALS: BP 141/83; PULSE 82; RESP 16; TEMP 98.4
--- NOTE | 2016-11-01 19:26 | ED ---
Psych HPI - General Chief Complaint: Psychiatric Symptoms Stated Complaint: mental health asked to come in by dr krause Time Seen by Provider: 11/01/16 19:12 Source: patient Mode of arrival: ambulatory - History of Present Illness Initial Comments: The message from Dr. Monte's office who is his psychiatrist to come to the ER for evaluation and now patient came to the ER with his mother the both share the house. He denies any suicidal or homicidal ideation no alcohol on board he did smoke but of marijuana last night he has a history of depression and anxiety he is on Effexor, clonidine, Ativan and he has been taking his medications as directed. He has a history of alcohol use but he has no alcohol on board today. Denies any medical issues as well - Related Data Home Medications Medication Instructions Recorded Confirmed cloNIDine HCL [Catapres] 0.1 mg PO HS 09/05/16 11/22/16 Venlafaxine HCl [Effexor XR] 37.5 mg PO DAILY 10/02/16 11/22/16 Previous Rx's Medication Instructions Recorded Losartan [Cozaar] 50 mg PO DAILY #30 tab 08/08/16 Allergies Allergy/AdvReac Type Severity Reaction Status Date / Time cephalexin [From Keflex] Allergy Swelling Verified 11/22/16 01:02 hydrocodone Allergy Itching Verified 11/22/16 01:02 metaxalone [From Skelaxin] Allergy Rash/Hives Verified 11/22/16 01:02 NSAIDS (Non-Steroidal Allergy Rash/Hives Verified 11/22/16 01:02 Anti-Inflamma vancomycin Allergy Rash/Hives Verified 11/22/16 01:02 gabapentin AdvReac Unknown Verified 11/22/16 01:02 sulfamethoxazole AdvReac Nausea & Verified 11/22/16 01:02 [From Bactrim] Vomiting trimethoprim [From Bactrim] AdvReac Nausea & Verified 11/22/16 01:02 Vomiting TIDE Allergy Dyspnea Uncoded 11/22/16 01:02 DUST AdvReac Mild Sneezing Uncoded 11/22/16 01:02 Review of Systems ROS Statement: Those systems with pertinent positive or pertinent negative responses have been documented in the HPI. ROS Other: All systems not noted in ROS Statement are negative. Past Medical History Past Medical History: Hypertension, Musculoskeletal Disorder, Seizure Disorder Additional Past Medical History / Comment(s): HX SEIZURE X2, D/T LOW K+ LEVEL 2012 AND SEIZURE 2013., KIDNEY STONE, BACK PAIN, MOUTH TUMORS, degenerative disc disease of the cervical spine History of Any Multi-Drug Resistant Organisms: MRSA Date of last positivie culture/infection: 06/19/16 MDRO Source:: right leg Past Surgical History: Cholecystectomy, Hernia Repair Additional Past Surgical History / Comment(s): 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 POSSIBLE HEMORRHOIDS Past Anesthesia/Blood Transfusion Reactions: Motion Sickness Past Psychological History: ADD/ADHD, Anxiety, Depression, PTSD Additional Psychological History / Comment(s): HX OF DEPRESSION EPISODE R/T REACTION TO [facility], TRANSFERRED TO [facility]. Anxiety, Hx of attempted suicide by OD. Patient sees Dr. Cutler at [facility]. Smoking Status: Current every day smoker Past Alcohol Use History: Occasional Additional Past Alcohol Use History / Comment(s): Patient states he IS ON ANTABUSE LAST DRINK ABOUT 2 MONTHS AGO. HX OF ETOH ABUSE Patient smokes 1 pack per day for 14 years. Past Drug Use History: None Reported Additional Drug Use History / Comment(s): 12/04/13 DRUG OD ON TRAMADOL. - Past Family History Father Family Medical History: Coronary Artery Disease (CAD), Myocardial Infarction ([place] ) Additional Family Medical History / Comment(s): Father is 60 years of age and is status post 4 vessel CABG. Mother Family Medical History: No Reported History Additional Family Medical History / Comment(s): Mother is alive at age 72. General Exam - General Exam Comments Initial Comments: General: The patient is awake and alert, in no distress, and does not appear acutely ill. Skin: Skin is warm and dry and no rashes or lesions are noted. Eye: Pupils are equal, round and reactive to light, extra-ocular movements are intact; there is normal conjunctiva bilaterally. Ears, nose, mouth and throat: There are moist mucous membranes and no oral lesions. Neck: The neck is supple, there is no tenderness or JVD. Cardiovascular: There is a regular rate and rhythm. No murmur, rub or gallop is appreciated. Respiratory: To auscultation bilateral, no wheezing no rhonchi no distress respiratory [place] noticed Gastrointestinal: Soft, non-distended, non-tender abdomen without masses or organomegaly noted. There is no rebound or guarding present. Bowel sounds are unremarkable. Back: There is no tenderness to palpation in the midline. There is no obvious deformity. Musculoskeletal: Normal ROM, no tenderness, There is no pedal edema. There is no calf tenderness or swelling. No cords were appreciated. Neurological: CN II-XII intact, Cranial nerves III through XII are intact. There are no obvious motor or sensory deficits. Coordination appears grossly intact. Speech is normal. Psychiatric: Cooperative, appropriate mood & affect, normal judgment. Denies any suicidal or homicidal ideation Limitations: no limitations Course Vital Signs 11/01/16 18:53 Temperature 98.4 F Pulse Rate 82 Respiratory 16 Rate Blood Pressure 141/83 O2 Sat by Pulse 99 Oximetry I spoke with Dr. Mccoy which he wanted the EPS to come and talk to him he was concerned about the patient's well-being as well as drug overdose Medical Decision Making - Lab Data Lab Results 11/01/16 Range/Units 19:45 Urine Opiates Screen Not Detected (NotDetected) Ur Oxycodone Screen Not Detected (NotDetected) Urine Methadone Screen Not Detected (NotDetected) Ur Propoxyphene Screen Not Detected (NotDetected) Ur Barbiturates Screen Not Detected (NotDetected) U Tricyclic Antidepress Not Detected (NotDetected) Ur Phencyclidine Scrn Not Detected (NotDetected) Ur Amphetamines Screen Not Detected (NotDetected) U Methamphetamines Scrn Not Detected (NotDetected) U Benzodiazepines Scrn Detected H (NotDetected) Urine Cocaine Screen Not Detected (NotDetected) U Marijuana (THC) Screen Detected H (NotDetected) Disposition Clinical Impression: Depression, Anxiety Disposition: Left Against Medical Advice Referrals: None,Stated [Primary Care Provider] - 1-2 days
== END 2016-11-01 21:31 | disposition left against medical advice (07) ==
LOC: EC 18:41
DX: F32.9 Major depressive disorder, single episode, unspecified (principal); F41.9 Anxiety disorder, unspecified; F90.9 Attention-deficit hyperactivity disorder, unspecified type; I10 Essential (primary) hypertension; Z86.14 Personal history of Methicillin resistant Staphylococcus aureus infection; Z79.899 Other long term (current) drug therapy; F17.200 Nicotine dependence, unspecified, uncomplicated; Z88.1 Allergy status to other antibiotic agents; Z88.5 Allergy status to narcotic agent; Z88.8 Allergy status to other drugs, medicaments and biological substances; Z88.2 Allergy status to sulfonamides; Z88.6 Allergy status to analgesic agent
CPT/HCPCS: 80306; 82075; 99283

== ENCOUNTER 2016-11-22 00:55 | Emergency (ER) | payer OTHER ==
[2016-11-22] MEDS ORDERED: cloNIDine HCL 0.1 MG TAB PO STA (01:33)
--- NOTE | 2016-11-22 02:59 | ED ---
Psych HPI - General Chief Complaint: Psychiatric Symptoms Stated Complaint: mental health Time Seen by Provider: 11/22/16 01:08 Source: patient Mode of arrival: ambulatory - History of Present Illness Initial Comments: This patient is a 36-year-old man who presents to be evaluated for worsening of his depression. Patient states that he had stopped his psychiatric medications about a week ago. He states that since that time his mood has been worsening. He notes that it is his birthday and he is having a lot of anxiety about being around his family. He states that he would like to Avoid This Situation and Wants to Talk to Someone. He Had Some Thoughts about Harming Himself but Is Lou for Safety Now. MD Complaint: feels depressed -: days(s) Associated Psychiatric Symptoms: depression Improves With: none Worsens With: none Context: not taking psychiatric medications, significant life stressor - Related Data Home Medications Medication Instructions Recorded Confirmed cloNIDine HCL [Catapres] 0.1 mg PO HS 09/05/16 11/22/16 Venlafaxine HCl [Effexor XR] 37.5 mg PO DAILY 10/02/16 11/22/16 Previous Rx's Medication Instructions Recorded Losartan [Cozaar] 50 mg PO DAILY #30 tab 08/08/16 Allergies Allergy/AdvReac Type Severity Reaction Status Date / Time cephalexin [From Keflex] Allergy Swelling Verified 11/22/16 01:02 hydrocodone Allergy Itching Verified 11/22/16 01:02 metaxalone [From Skelaxin] Allergy Rash/Hives Verified 11/22/16 01:02 NSAIDS (Non-Steroidal Allergy Rash/Hives Verified 11/22/16 01:02 Anti-Inflamma vancomycin Allergy Rash/Hives Verified 11/22/16 01:02 gabapentin AdvReac Unknown Verified 11/22/16 01:02 sulfamethoxazole AdvReac Nausea & Verified 11/22/16 01:02 [From Bactrim] Vomiting trimethoprim [From Bactrim] AdvReac Nausea & Verified 11/22/16 01:02 Vomiting TIDE Allergy Dyspnea Uncoded 11/22/16 01:02 DUST AdvReac Mild Sneezing Uncoded 11/22/16 01:02 Review of Systems ROS Statement: Those systems with pertinent positive or pertinent negative responses have been documented in the HPI. ROS Other: All systems not noted in ROS Statement are negative. Eyes: Denies: vision change Respiratory: Denies: cough, dyspnea Cardiovascular: Denies: chest pain, palpitations, syncope Gastrointestinal: Denies: abdominal pain, nausea, vomiting Genitourinary: Denies: dysuria Musculoskeletal: Denies: back pain Neurological: Denies: headache Psychiatric: Reports: anxiety, depression, suicidal thoughts. Denies: auditory hallucinations, visual hallucinations, homicidal thoughts Past Medical History Past Medical History: Hypertension, Musculoskeletal Disorder, Seizure Disorder Additional Past Medical History / Comment(s): HX SEIZURE X2, D/T LOW K+ LEVEL 2012 AND SEIZURE 2013., KIDNEY STONE, BACK PAIN, MOUTH TUMORS, degenerative disc disease of the cervical spine History of Any Multi-Drug Resistant Organisms: MRSA Date of last positivie culture/infection: 06/19/16 MDRO Source:: right leg Past Surgical History: Cholecystectomy, Hernia Repair Additional Past Surgical History / Comment(s): BENIGN TUMOR REMOVED FROM HARD PALATE; epidural steroid injections, cervical spine surgery anterior approach, lung surgery as an infant. POSSIBLE HEMORRHOIDS Past Anesthesia/Blood Transfusion Reactions: Motion Sickness Past Psychological History: ADD/ADHD, Anxiety, Depression, PTSD Additional Psychological History / Comment(s): HX OF DEPRESSION EPISODE R/T REACTION TO [facility], TRANSFERRED TO [facility]. Anxiety, Hx of attempted suicide by OD. Patient sees Dr. Cutler at [facility]. Smoking Status: Current every day smoker Past Alcohol Use History: Occasional Additional Past Alcohol Use History / Comment(s): Patient states he IS ON ANTABUSE LAST DRINK ABOUT 2 MONTHS AGO. HX OF ETOH ABUSE Patient smokes 1 pack per day for 14 years. Past Drug Use History: None Reported Additional Drug Use History / Comment(s): 12/04/13 DRUG OD ON TRAMADOL. - Past Family History Father Family Medical History: Coronary Artery Disease (CAD), Myocardial Infarction ([place] ) Additional Family Medical History / Comment(s): Father is 60 years of age and is status post 4 vessel CABG. Mother Family Medical History: No Reported History Additional Family Medical History / Comment(s): Mother is alive at age 72. General Exam Limitations: no limitations General appearance: alert, in no apparent distress Head exam: Present: atraumatic, normocephalic Respiratory exam: Present: normal lung sounds bilaterally. Absent: respiratory distress, wheezes, rales, rhonchi, stridor Cardiovascular Exam: Present: regular rate, normal rhythm, normal heart sounds. Absent: systolic murmur, diastolic murmur, rubs, gallop GI/Abdominal exam: Present: soft. Absent: distended, tenderness, guarding, rebound Extremities exam: Present: normal inspection, normal capillary refill. Absent: pedal edema, calf tenderness Back exam: Present: normal inspection. Absent: CVA tenderness (R), CVA tenderness (L) Neurological exam: Present: alert Psychiatric exam: Present: depressed, anxious. Absent: agitated, homicidal ideation, suicidal ideation Skin exam: Present: warm, dry, intact, normal color Course Vital Signs 11/22/16 11/22/16 11/22/16 00:58 02:10 03:56 Temperature 97.9 F 99 F Pulse Rate 100 87 Respiratory 20 18 Rate Blood Pressure 165/89 134/67 108/63 O2 Sat by Pulse 97 98 Oximetry Medical Decision Making - Lab Data Lab Results 11/22/16 Range/Units 01:05 Urine Opiates Screen Not Detected (NotDetected) Ur Oxycodone Screen Not Detected (NotDetected) Urine Methadone Screen Not Detected (NotDetected) Ur Propoxyphene Screen Not Detected (NotDetected) Ur Barbiturates Screen Not Detected (NotDetected) U Tricyclic Antidepress Not Detected (NotDetected) Ur Phencyclidine Scrn Not Detected (NotDetected) Ur Amphetamines Screen Not Detected (NotDetected) U Methamphetamines Scrn Not Detected (NotDetected) U Benzodiazepines Scrn Not Detected (NotDetected) Urine Cocaine Screen Not Detected (NotDetected) U Marijuana (THC) Screen Detected H (NotDetected) Disposition Clinical Impression: Mood disorder Disposition: HOME SELF-CARE Condition: Good Instructions: Mood Disorders (ED), Suicide Prevention for Adults (ED) Referrals: Wilbur Pineda MD [Primary Care Provider] - 1-2 days
[2016-11-22 03:58] VITALS: BP 108/63; PULSE 87; RESP 18; TEMP 99
== END 2016-11-22 03:56 | disposition home or self-care (01) ==
LOC: EC 00:55
DX: F39 Unspecified mood [affective] disorder (principal); F32.9 Major depressive disorder, single episode, unspecified; F41.9 Anxiety disorder, unspecified; F90.9 Attention-deficit hyperactivity disorder, unspecified type; I10 Essential (primary) hypertension; F43.10 Post-traumatic stress disorder, unspecified; F17.200 Nicotine dependence, unspecified, uncomplicated; Z79.899 Other long term (current) drug therapy; Z88.1 Allergy status to other antibiotic agents; Z88.5 Allergy status to narcotic agent; Z88.6 Allergy status to analgesic agent; Z88.2 Allergy status to sulfonamides; Z91.048 Other nonmedicinal substance allergy status; Z88.8 Allergy status to other drugs, medicaments and biological substances
CPT/HCPCS: 80306; 82075; 99284

== ENCOUNTER 2017-06-03 01:27 | Emergency (ER) | payer OTHER ==
[2017-06-03 01:43] VITALS: RESP 18
--- NOTE | 2017-06-03 02:42 | ED ---
Psych HPI - General Chief Complaint: Psychiatric Symptoms Stated Complaint: suicidal Time Seen by Provider: 06/03/17 01:48 Source: patient, RN notes reviewed Mode of arrival: ambulatory Limitations: no limitations - History of Present Illness Initial Comments: 36-year-old male presents emergency Department chief complaint depression suicidal ideation, medication withdrawal. Patient states that he was discharged from pain clinic secondary to having a urine test and positive for marijuana. Patient states that he is depressed. He has been buying drugs off the street which includes benzodiazepines and narcotics. - Related Data Home Medications Medication Instructions Recorded Confirmed cloNIDine HCL [Catapres] 0.1 mg PO HS 09/05/16 11/22/16 Venlafaxine HCl [Effexor XR] 37.5 mg PO DAILY 10/02/16 11/22/16 Previous Rx's Medication Instructions Recorded Losartan [Cozaar] 50 mg PO DAILY #30 tab 08/08/16 Allergies Allergy/AdvReac Type Severity Reaction Status Date / Time cephalexin [From Keflex] Allergy Unknown Verified 06/03/17 01:46 gabapentin Allergy Unknown Verified 06/03/17 01:46 sulfamethoxazole Allergy Unknown Verified 06/03/17 01:46 [From Bactrim] trimethoprim [From Bactrim] Allergy Unknown Verified 06/03/17 01:46 vancomycin Allergy Unknown Verified 06/03/17 01:46 Review of Systems ROS Statement: Those systems with pertinent positive or pertinent negative responses have been documented in the HPI. ROS Other: All systems not noted in ROS Statement are negative. 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 POSSIBLE HEMORRHOIDS Past Anesthesia/Blood Transfusion Reactions: Motion Sickness Past Psychological History: ADD/ADHD, Anxiety, Depression, PTSD Smoking Status: Current every day smoker Past Alcohol Use History: Occasional Past Drug Use History: Marijuana, Prescription Drug Abuse - Past Family History Father Family Medical History: Coronary Artery Disease (CAD), Myocardial Infarction ([place] ) Additional Family Medical History / Comment(s): Father is 60 years of age and is status post 4 vessel CABG. Mother Family Medical History: No Reported History Additional Family Medical History / Comment(s): Mother is alive at age 72. General Exam Limitations: no limitations General appearance: alert, in no apparent distress Head exam: Present: atraumatic, normocephalic, normal inspection Eye exam: Present: normal appearance, PERRL, EOMI. Absent: scleral icterus, conjunctival injection, periorbital swelling ENT exam: Present: normal exam, normal oropharynx, mucous membranes moist Neck exam: Present: normal inspection, full ROM. Absent: tenderness, meningismus, lymphadenopathy Respiratory exam: Present: normal lung sounds bilaterally. Absent: respiratory distress, wheezes, rales, rhonchi, stridor Cardiovascular Exam: Present: normal rhythm, tachycardia, normal heart sounds. Absent: systolic murmur, diastolic murmur, rubs, gallop, clicks GI/Abdominal exam: Present: soft, normal bowel sounds. Absent: distended, tenderness, guarding, rebound, rigid Neurological exam: Present: alert, oriented X3, CN II-XII intact Skin exam: Present: warm, dry, intact, normal color. Absent: rash Course Vital Signs 06/03/17 01:35 Temperature 98.1 F Pulse Rate 123 H Respiratory 18 Rate Blood Pressure 117/67 O2 Sat by Pulse 97 Oximetry Medical Decision Making - Medical Decision Making 36-year-old male present emergency from for psychiatric evaluation, medication relief fill withdrawal. Patient states that he is not suicidal he states that he recently just wants pain meds because he is withdrawing though he states that he wanted narcotics and benzos off history of prior arrival. Patient will be discharged. Patient was evaluated by psychiatric services case discussed with on-call psychiatrist Dr. Bates recommends discharge. - Lab Data Lab Results 06/03/17 Range/Units 02:05 Urine Opiates Screen Detected H (NotDetected) Ur Oxycodone Screen Not Detected (NotDetected) Urine Methadone Screen Not Detected (NotDetected) Ur Propoxyphene Screen Not Detected (NotDetected) Ur Barbiturates Screen Not Detected (NotDetected) U Tricyclic Antidepress Not Detected (NotDetected) Ur Phencyclidine Scrn Not Detected (NotDetected) Ur Amphetamines Screen Not Detected (NotDetected) U Methamphetamines Scrn Not Detected (NotDetected) U Benzodiazepines Scrn Detected H (NotDetected) Urine Cocaine Screen Not Detected (NotDetected) U Marijuana (THC) Screen Detected H (NotDetected) Disposition Clinical Impression: Alcohol intoxication, Opiate dependence, Medication withdrawal, Drug abuse Disposition: HOME SELF-CARE Condition: Stable Instructions: Narcotic Abuse (ED) Additional Instructions: Please return to the Emergency Department if symptoms worsen or any other concerns. Referrals: Wilbur Pineda MD [Primary Care Provider] - 1-2 days Time of Disposition: 03:55
[2017-06-03 04:20] VITALS: BP 116/63; PULSE 90; TEMP 97
== END 2017-06-03 04:19 | disposition home or self-care (01) ==
LOC: EC 01:27
DX: F10.129 Alcohol abuse with intoxication, unspecified (principal); F11.23 Opioid dependence with withdrawal; F19.10 Other psychoactive substance abuse, uncomplicated; R00.0 Tachycardia, unspecified; I10 Essential (primary) hypertension; F32.9 Major depressive disorder, single episode, unspecified; F41.9 Anxiety disorder, unspecified; F17.200 Nicotine dependence, unspecified, uncomplicated; Z79.899 Other long term (current) drug therapy; Z88.1 Allergy status to other antibiotic agents; Z88.8 Allergy status to other drugs, medicaments and biological substances
CPT/HCPCS: 80306; 82075; 99284

== ENCOUNTER 2017-06-16 17:17 | Inpatient (IN) | payer MEDICAID ==
[2017-06-16] MEDS ORDERED: MAGNESIUM HYDROXIDE 2,400 MG/10 ML CUP PO PRN (17:22)
[2017-06-16] MEDS ORDERED: MAG HYDROX/AL HYDROX/SIMETH 30 ML CUP PO PRN (17:22)
[2017-06-16] MEDS ORDERED: LORazepam 1 MG TAB PO PRN (17:22)
[2017-06-16 17:28] VITALS: RESP 16
[2017-06-16] MEDS ORDERED: HYDROcodone/APAP 5-325MG 1 EACH TAB PO PRN (17:39)
[2017-06-16] MEDS ORDERED: LORazepam 2 MG/ML INJ IM STA (17:52)
[2017-06-16] MEDS ORDERED: WATER FOR INJECTION, STERILE 10 ML IV ONE (17:57)
[2017-06-16] MEDS: ZIPRASIDONE 20 MG VIAL IM PRN ×2 (18:11→18:13)
[2017-06-16] MEDS ORDERED: QUEtiapine 200 MG TAB PO SCH (21:00)
[2017-06-17 06:43] VITALS: TEMP 97.6
[2017-06-17 07:29] LABS: Basophils # (A) 0.1 k/uL (0-0.2); Basophils % (A) 1 %; CH 30.7; CHCM 32.9; Eosinophils # (A) 0.3 k/uL (0-0.7); Eosinophils % (A) 4 %; HCT 45.5 % (39.0-53.0); HDW 2.45; HGB 14.9 gm/dL (13.0-17.5); Luc # (Auto) 0.12; Luc % (Auto) 2; Lymphocytes # (A) 2.7 k/uL (1.0-4.8); Lymphocytes % (A) 33 %; MCH 30.6 pg (25.0-35.0); MCHC 32.7 g/dL (31.0-37.0); MCV 93.7 fL (80.0-100.0); Mean Platelet Volume 6.9; Monocytes # (A) 0.5 k/uL (0-1.0); Monocytes % (A) 6 %; Neutrophils # (A) 4.4 k/uL (1.3-7.7); Neutrophils % (A) 55 %; RBC 4.85 m/uL (4.30-5.90); WBC (Perox) 7.96
[2017-06-17 07:51] LABS: ALT 36 U/L (21-72); AST 19 U/L (17-59); Alkaline Phosphatase 49 U/L (38-126); Anion Gap 10 mmol/L; Blood Urea Nitrogen 14 mg/dL (9-20); Calcium 9.4 mg/dL (8.4-10.2); Carbon Dioxide 24 mmol/L (22-30); Chloride 108 mmol/L (98-107); Glucose 105 mg/dL (74-99); Non-African American GFR(MDRD) >60 (>60 ml/min/1.73 sqM); Potassium 4.4 mmol/L (3.5-5.1); Sodium 142 mmol/L (137-145); Total Bilirubin 0.3 mg/dL (0.2-1.3); Total Protein 6.7 g/dL (6.3-8.2)
[2017-06-17] MEDS: ACETAMINOPHEN TAB 325 MG TAB PO PRN ×2 (08:23→12:53)
[2017-06-17] MEDS ORDERED: NICOTINE 21MG/24HR PATCH TRANSDERM SCH (09:00)
[2017-06-17] MEDS ORDERED: PANTOPRAZOLE 40 MG TABLET PO SCH (09:00)
[2017-06-17] MEDS ORDERED: LOSARTAN 25 MG TAB PO SCH (09:00)
--- NOTE | 2017-06-17 09:45 | US ---
EXAMINATION TYPE: US renals and bladder DATE OF EXAM: 06/17/2017 COMPARISON: CT CLINICAL HISTORY: possible kidney stones. Pt states gross hematuria and ABD pain, history of renal st ones EXAM MEASUREMENTS: Right Kidney: 11.1 x 5.3 x 4.8 cm Left Kidney: 10.8 x 5.1 x 5.0 cm Right Kidney: No evidence of hydro, unable to visualize definite stones by ultrasound Left Kidney: No evidence of hydro, unable to visualize definite stones by ultrasound Bladder: wnl Bilateral Jets seen: No There is no evidence for hydronephrosis at this point in time. No nephrolithiasis is seen. No ronnie s are identified. The urinary bladder is anechoic. Bilateral ureteral jets are seen. IMPRESSION: No significant abnormality.
[2017-06-17 10:18] VITALS: BP 125/73; PULSE 95
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
== END 2017-06-17 13:30 | disposition home or self-care (01) | DRG 812 ==
LOC: 3MHU 17:17
PROVIDERS: ADMIT Psychiatry & Neurology Psychiatry; ATTEND Psychiatry & Neurology Psychiatry
DX: T42.4X1A Poisoning by benzodiazepines, accidental (unintentional), initial encounter (principal); F33.2 Major depressive disorder, recurrent severe without psychotic features; F10.20 Alcohol dependence, uncomplicated; F11.90 Opioid use, unspecified, uncomplicated; F13.90 Sedative, hypnotic, or anxiolytic use, unspecified, uncomplicated; F40.240 Claustrophobia; F41.0 Panic disorder [episodic paroxysmal anxiety]; F41.1 Generalized anxiety disorder; F60.3 Borderline personality disorder; F90.9 Attention-deficit hyperactivity disorder, unspecified type; Z79.899 Other long term (current) drug therapy; Z81.8 Family history of other mental and behavioral disorders
CPT/HCPCS: 76770; 80053; 82607; 84443; 85025

== ENCOUNTER → 2017-09-25 | Outpatient (CLI) | payer OTHER ==
--- NOTE | 2017-09-25 23:16 | MR ---
EXAMINATION TYPE: MR lumbar spine wo con DATE OF EXAM: 09/25/2017 COMPARISON: CT abdomen and pelvis June 21, 2016 HISTORY: LBP/BLE numbness/weakness/tingling x 5 years per patient. Lumbago M54.5 per order. TECHNIQUE: Multiplanar, multisequence imaging of the lumbar spine is performed without IV contrast. FINDINGS: Sagittal images of the lumbar spine show vertebral body heights and alignment to appear sat isfactory. The intervertebral discs demonstrate normal heights and hydration. No suspicious posterio r disc herniations are seen on sagittal images. The conus medullaris is normal in position and signal ending at mid L1 level. The bone marrow signal intensity is within normal limits. No significant sp urring is seen. Axial images show the T12-L1, L1-L2, L2-L3, L3-L4 levels also appear within normal limits. Axial images at L4-L5 level show mild facet degenerative changes bilaterally. There is mild broad dis c bulge mildly effacing anterior thecal sac. Bilateral neural foramina are patent. Axial images at L5-S1 level show asymmetric moderate right-sided facet degenerative change and mild l eft-sided facet degenerative change. No significant disc herniation or spinal canal effacement is see n. Bilateral neural foramina remain patent. IMPRESSION: Some early degenerative changes lower lumbar spine redemonstrated. No significant finding seen to account for patient's bilateral for lower extremity radiculopathy type symptoms however.
--- NOTE | 2017-09-26 07:14 | MR ---
MRI CERVICAL SPINE: CLINICAL HISTORY: Cervicalgia per order. Headaches with neck pain causing bilateral upper extremity w eakness. History of prior neck surgery. TECHNIQUE: Multiplanar, multisequence imaging of the cervical spine is performed without and with IV contrast, 9 cc of gadolinium was given intravenously. COMPARISON: [facility] CT cervical spine July 20, 2011. FINDINGS: Sagittal images of the cervical spine show the craniocervical junction to appear within nor mal limits. There is 1.3 cm mucous retention cyst or polyp in the inferior right maxillary sinus on s agittal image 13 redemonstrated. The cervical and upper thoracic spinal cord is normal in course, tasha iber, and signal. Vertebral alignment is stable and anatomic. The vertebral body and intravertebral disk heights are normal above and below surgical levels. There is artifact from anterior fusion plat e at C5-C6 level. Posterior disc herniations are seen effacing anterior thecal sac at C3-C4, C4-C5, a nd to greater degree C6-C7 level on sagittal images. The bone marrow signal intensity is within jolene l limits. No suspicious postcontrast enhancement is seen. No significant spurring is noted. Axial images show the C2-C3 level to appear within normal limits. Axial images at C3-C4 level show broad-based left paracentral disc protrusion with more focal central disc protrusion on axial image 36 effacing anterior thecal sac, bilateral neural foramina are patent . Axial images at C4-C5 level show more broad-based right paracentral disc protrusion effacing anterola teral thecal sac, bilateral neural foramina are patent. Axial images at C5-C6 level show artifact from anterior fusion hardware. No suspicious spinal canal e ffacement or neural foraminal narrowing is noted. Axial images at C6-C7 level shows central disc protrusion effacing anterior thecal sac on axial image 12, bilateral neural foramina are patent. Axial images at C7-T1 level are felt within normal limits. IMPRESSION: Postsurgical changes C5-C6 level with satisfactory alignment. Adjacent disc herniations C 3-C4, C4-C5, and C6-C7 level are all present.
== END | disposition home or self-care (01) ==
LOC: RADMRIMAIN 19:33
PROVIDERS: ATTEND Psychiatry & Neurology Neurology
DX: M47.816 Spondylosis without myelopathy or radiculopathy, lumbar region (principal); M50.21 Other cervical disc displacement, high cervical region; Z98.890 Other specified postprocedural states
CPT/HCPCS: 72148; 72156; A9581

== ENCOUNTER → 2018-01-03 | Outpatient (CLI) | payer OTHER ==
[2018-01-03 13:57] LABS: Basophils # (A) 0.1 k/uL (0-0.2); Basophils % (A) 1 %; Eosinophils # (A) 0.2 k/uL (0-0.7); Eosinophils % (A) 3 %; HCT 45.8 % (39.0-53.0); Lymphocytes # (A) 2.5 k/uL (1.0-4.8); Lymphocytes % (A) 27 %; MCHC 32.8 g/dL (31.0-37.0); MCV 88.4 fL (80.0-100.0); Mean Platelet Volume 7.1; Monocytes # (A) 0.4 k/uL (0-1.0); Monocytes % (A) 5 %; Neutrophils # (A) 5.7 k/uL (1.3-7.7); Neutrophils % (A) 63 %; Platelet Count 278 k/uL (150-450); RBC 5.19 m/uL (4.30-5.90); RDW 13.8 % (11.5-15.5); WBC 9.1 k/uL (3.8-10.6)
[2018-01-03 14:22] LABS: ALT 70 U/L (21-72); AST 37 U/L (17-59); Albumin 4.5 g/dL (3.5-5.0); Alkaline Phosphatase 56 U/L (38-126); Anion Gap 14 mmol/L; Blood Urea Nitrogen 14 mg/dL (9-20); C Reactive Protein <5.0 mg/L (<10.0); Calcium 10.2 mg/dL (8.4-10.2); Carbon Dioxide 25 mmol/L (22-30); Chloride 104 mmol/L (98-107); Cholesterol 194 mg/dL (<200); Creatine Kinase 53 U/L (55-170); Glucose 85 mg/dL (74-99); HDL Cholesterol 40 mg/dL (40-60); LDL Cholesterol,Calculated 113 mg/dL (0-99); Magnesium 1.7 mg/dL (1.6-2.3); Sodium 143 mmol/L (137-145); Total Bilirubin 0.5 mg/dL (0.2-1.3); Triglycerides 206 mg/dL (<150)
[2018-01-03 20:50] LABS: Hepatitis C IgG Antibody Non-Reactive (Non-Reactive)
== END | disposition home or self-care (01) ==
LOC: LABWHC1 13:10
PROVIDERS: ATTEND Internal Medicine
DX: E78.5 Hyperlipidemia, unspecified (principal); I10 Essential (primary) hypertension
CPT/HCPCS: 36415; 80053; 80061; 82306; 82550; 83735; 85025; 86140; 86803

== ENCOUNTER → 2018-04-22 | Outpatient (CLI) | payer OTHER ==
[2018-04-22 15:21] LABS: Basophils % (A) 0 %; Eosinophils # (A) 0.4 k/uL (0-0.7); Eosinophils % (A) 4 %; HGB 14.6 gm/dL (13.0-17.5); Lymphocytes # (A) 2.1 k/uL (1.0-4.8); Lymphocytes % (A) 23 %; MCH 29.3 pg (25.0-35.0); MCHC 32.4 g/dL (31.0-37.0); MCV 90.6 fL (80.0-100.0); Mean Platelet Volume 6.4; Monocytes # (A) 0.4 k/uL (0-1.0); Monocytes % (A) 4 %; Neutrophils # (A) 6.1 k/uL (1.3-7.7); Neutrophils % (A) 67 %; Platelet Count 255 k/uL (150-450); RBC 4.97 m/uL (4.30-5.90); RDW 13.4 % (11.5-15.5)
--- NOTE | 2018-04-22 15:56 | XR ---
EXAMINATION TYPE: XR chest 2V DATE OF EXAM: 04/22/2018 COMPARISON: NONE TECHNIQUE: PA and lateral views submitted. HISTORY: 09/05/2016 FINDINGS: The lungs are clear and there is no pneumothorax, pleural effusion, or focal pneumonia. Postsurgica l change overlying the cervical spine. No overt failure. IMPRESSION: 1. No acute process.
== END | disposition home or self-care (01) ==
LOC: LABWHC1 14:56
PROVIDERS: ATTEND Internal Medicine
DX: J45.909 Unspecified asthma, uncomplicated (principal); J06.9 Acute upper respiratory infection, unspecified; J12.9 Viral pneumonia, unspecified
CPT/HCPCS: 36415; 71046; 85025

== ENCOUNTER → 2018-07-30 | Outpatient (CLI) | payer OTHER ==
[2018-07-30 16:33] LABS: LDL Cholesterol,Calculated 107.2 mg/dL (0.0-131.0); VLDL Calculation 22.8 mg/dL (5.00-40.00)
== END | disposition home or self-care (01) ==
LOC: LABWHC1 09:05
PROVIDERS: ATTEND Internal Medicine
DX: E78.5 Hyperlipidemia, unspecified (principal); E55.9 Vitamin D deficiency, unspecified
CPT/HCPCS: 36415; 80061; 82306; 84450; 84460

== ENCOUNTER → 2019-02-23 | Outpatient (CLI) | payer OTHER ==
[2019-02-23 09:35] LABS: Basophils % (A) 1 %; Eosinophils # (A) 0.3 k/uL (0-0.7); Eosinophils % (A) 4 %; HCT 45.1 % (39.0-53.0); HGB 14.7 gm/dL (13.0-17.5); Lymphocytes # (A) 2.3 k/uL (1.0-4.8); Lymphocytes % (A) 36 %; MCH 28.8 pg (25.0-35.0); MCHC 32.6 g/dL (31.0-37.0); MCV 88.4 fL (80.0-100.0); Mean Platelet Volume 7.3; Monocytes # (A) 0.3 k/uL (0-1.0); Monocytes % (A) 5 %; Neutrophils # (A) 3.3 k/uL (1.3-7.7); Neutrophils % (A) 51 %; Platelet Count 231 k/uL (150-450); RDW 14.3 % (11.5-15.5); WBC 6.4 k/uL (3.8-10.6)
[2019-02-23 09:40] LABS: Appearance,Urine Clear (Clear); Bilirubin,Urine Negative (Negative); Blood,Urine Negative (Negative); Color,Urine Yellow; Glucose,Urine (UA) Negative (Negative); Ketones,Urine Negative (Negative); Leukocyte Esterase,Urine Negative (Negative); Nitrite,Urine Negative (Negative); PH, Urine 6.5 (5.0-8.0); Protein,Urine Negative (Negative); Specific Gravity,Urine 1.023 (1.001-1.035); Urobilinogen,Urine <2.0 mg/dL (<2.0)
[2019-02-23 11:40] LABS: Erythrocyte Sedimentation Rate 5 mm/hr (0-15)
[2019-02-23 17:23] LABS: African American GFR (CKD) 126.9 (60.0-200.0); Albumin 4.4 g/dL (3.80-4.90); Albumin/Globulin Ratio 2.44 (1.60-3.17); Anion Gap 5.3 mmol/L (4.00-12.00); BUN/Creat Ratio 17.78 Ratio (12.00-20.00); C Reactive Protein 0.4 mg/dL (0.0-0.8); Calcium 9.2 mg/dL (8.7-10.3); Carbon Dioxide 26.7 mmol/L (21.6-31.8); Globulin 1.8 g/dL (1.6-3.3); LDL Cholesterol,Calculated 109.4 mg/dL (0.0-131.0); Potassium 4.4 mmol/L (3.5-5.5); Total Bilirubin 0.4 mg/dL (0.3-1.2); Total Protein 6.2 g/dL (6.2-8.2); VLDL Calculation 30.6 mg/dL (5.00-40.00)
[2019-02-23 20:26] LABS: Hemoglobin A1C 5.8 % (4.0-6.0)
== END | disposition home or self-care (01) ==
LOC: LABWHC1 08:44
PROVIDERS: ATTEND Internal Medicine
DX: E78.5 Hyperlipidemia, unspecified (principal); N20.0 Calculus of kidney; N39.0 Urinary tract infection, site not specified; E55.9 Vitamin D deficiency, unspecified; E11.9 Type 2 diabetes mellitus without complications; J44.9 Chronic obstructive pulmonary disease, unspecified
CPT/HCPCS: 36415; 80053; 80061; 81003; 82306; 82550; 83036; 85025; 85652; 86140

== ENCOUNTER → 2019-03-30 | Outpatient (CLI) | payer OTHER ==
[2019-03-30 17:20] LABS: ALT 107 U/L (10-49); AST 49 U/L (14-35); Albumin/Globulin Ratio 2.39 (1.60-3.17); Alkaline Phosphatase 97 U/L (41-126); Bilirubin, Conjugated <0.20 mg/dL (0.20-0.40); Globulin 1.8 g/dL (1.6-3.3); Total Bilirubin 0.1 mg/dL (0.3-1.2); Total Protein 6.1 g/dL (6.2-8.2)
[2019-03-30 18:09] LABS: Hepatitis A Antibody IgM Non-Reactive (Non-Reactive); Hepatitis B Core IgM Non-Reactive (Non-Reactive); Hepatitis B Surface Antigen Non-Reactive (Non-Reactive); Hepatitis C IgG Antibody Non-Reactive (Non-Reactive)
== END | disposition home or self-care (01) ==
LOC: LABWHC1 09:00
PROVIDERS: ATTEND Internal Medicine
DX: K75.9 Inflammatory liver disease, unspecified (principal)
CPT/HCPCS: 36415; 80074; 80076

== ENCOUNTER → 2019-07-13 | Outpatient (CLI) | payer OTHER ==
[2019-07-14 01:36] LABS: ALT 105 U/L (10-49); AST 49 U/L (14-35); Albumin/Globulin Ratio 2.42 (1.60-3.17); Alkaline Phosphatase 93 U/L (41-126); Bilirubin, Conjugated <0.20 mg/dL (0.20-0.40); Globulin 1.9 g/dL (1.6-3.3); Total Bilirubin 0.3 mg/dL (0.3-1.2); Total Protein 6.5 g/dL (6.2-8.2)
== END | disposition home or self-care (01) ==
LOC: LABWHC1 14:29
PROVIDERS: ATTEND Internal Medicine
DX: K75.9 Inflammatory liver disease, unspecified (principal)
CPT/HCPCS: 36415; 80076; 85652

== ENCOUNTER → 2020-03-07 | Outpatient (CLI) | payer MEDICARE, OTHER ==
[2020-03-07 20:26] LABS: ALT 102 U/L (10-49); AST 53 U/L (14-35); Alkaline Phosphatase 76 U/L (41-126); Bilirubin, Conjugated <0.20 mg/dL (0.20-0.40); Globulin 2.2 g/dL (1.6-3.3); Glucose 91 mg/dL (70-110); Total Bilirubin 0.2 mg/dL (0.3-1.2); Total Protein 6.6 g/dL (6.2-8.2)
== END | disposition home or self-care (01) ==
LOC: LABWHC1 09:20
PROVIDERS: ATTEND Internal Medicine
DX: K75.9 Inflammatory liver disease, unspecified (principal); E09.65 Drug or chemical induced diabetes mellitus with hyperglycemia
CPT/HCPCS: 36415; 80076; 82947

== ENCOUNTER → 2023-06-27 | Outpatient (CLI) | payer MEDICARE, OTHER ==
[2023-06-27 10:26] VITALS: BP 122/79; PULSE 73; RESP 18; TEMP 98.2
--- NOTE | 2023-06-27 10:39 | P.GSHP ---
History of Present Illness H&P Date: 06/27/23 Chief Complaint: Breast pain Edilberto is a 42 year old male seen regarding pain in his breast. He underwent a bilateral breast ultrasound on 2622 which revealed an irregular heterogeneous tiny hypoechoic area behind the left nipple this measured approximately 9 mm in the long axis. It was felt that this represented gynecomastia. He did not at that time have any right breast lesions of concern. He statea about 1 year ago he hit his left breast and than noticed pain behind the left nipple. It has increased in size in the past three months, the tenderness has also increased. It hurts when he touches it. He was treated with amoxicillin and no resolution. It was not warm or red to touch. He has not had any surgery on his breast. He was recently diagnosed with diabetes. He has lost weight recently from 247 to 230. 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 His testosterone levels were measured by endocrine, told testosterone low. 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 roof of his mouth Medical History: kidney stones (30 in the past) anxiety/depression PTSD pre-diabetic ADHD Social History: nicotine: 1/2 PPD alcohol: stopped 5 eyars ago drugs: stopped 15 years ago - Constitutional Constitutional: Reports sweats - EENT Eyes: denies blurred vision, denies pain Ears: left: tinnitus, bilateral: decreased hearing Ears, nose, mouth and throat: Reports headache, Denies sore throat - Breasts Breasts: bilateral: as per HPI - Cardiovascular Cardiovascular: Reports chest pain, Denies shortness of breath - Respiratory Respiratory: Denies cough, Denies 7 - Gastrointestinal Gastrointestinal: Reports constipation, Denies abdominal pain, Denies diarrhea, Denies nausea, Denies vomiting - Genitourinary (Male) Genitourinary: Reports kidney stones - Musculoskeletal Comment: stopped since stopped Lipitor - Integumentary Integumentary: Reports pruritus - Psychiatric Psychiatric: Reports anxiety, Reports depression - Endocrine Endocrine: Reports as per HPI - Hematologic/Lymphatic Comment: none - Allergic/Immunologic Allergic/Immunologic: Reports seasonal allergies Past Medical History Past Medical History: Hypertension, Musculoskeletal Disorder, Seizure Disorder Additional Past Medical History / Comment(s): HX SEIZURE X2, D/T LOW K+ LEVEL 12/2012 AND SEIZURE 2013., KIDNEY STONE, BACK PAIN, MOUTH TUMORS, degenerative disc disease of the cervical spine History of Any Multi-Drug Resistant Organisms: MRSA Date of last positivie culture/infection: 06/19/16 MDRO Source:: right leg Past Surgical History: Cholecystectomy, Hernia Repair Additional Past Surgical History / Comment(s): BENIGN TUMOR REMOVED FROM HARD PALATE; epidural steroid injections, cervical spine surgery anterior approach, lung surgery as an infant. POSSIBLE HEMORRHOIDS Past Anesthesia/Blood Transfusion Reactions: Motion Sickness Past Psychological History: ADD/ADHD, Anxiety, Depression, PTSD Past Alcohol Use History: Occasional Past Drug Use History: Marijuana, Prescription Drug Abuse - Past Family History Father Family Medical History: Coronary Artery Disease (CAD), Myocardial Infarction ([place]) Additional Family Medical History / Comment(s): Father is 60 years of age and is status post 4 vessel CABG. Mother Family Medical History: No Reported History Additional Family Medical History / Comment(s): Mother is alive at age 72. Medications and Allergies Home Medications Medication Instructions Recorded Confirmed Type QUEtiapine [SEROquel] 200 mg PO HS 06/16/17 06/16/17 History Atorvastatin [Lipitor] 10 mg PO HS 06/27/23 06/27/23 History Cholecalciferol [Vitamin D3 (25 25 mcg PO DAILY 06/27/23 06/27/23 History Mcg = 1000 Iu)] Methadone [Dolophine] 57 mg PO DAILY 06/27/23 06/27/23 History Vortioxetine Hydrobromide 20 mg PO DAILY 06/27/23 06/27/23 History [Trintellix] diazePAM [Valium] 2 mg PO Q8HR PRN 06/27/23 06/27/23 History Allergies Allergy/AdvReac Type Severity Reaction Status Date / Time cephalexin [From Keflex] Allergy Unknown Verified 06/27/23 10:16 gabapentin Allergy Unknown Verified 06/27/23 10:16 ibuprofen [From Motrin] Allergy Rash/Hives, Verified 06/27/23 10:16 Stomach pain sulfamethoxazole Allergy Unknown Verified 06/27/23 10:16 [From Bactrim] trimethoprim [From Bactrim] Allergy Unknown Verified 06/27/23 10:16 vancomycin Allergy Unknown Verified 06/27/23 10:16 Surgical - Exam - General moderate distress - Eyes normal ocular movement - Neck trachea midline - Respiratory normal respiratory effort - Cardiovascular Heart Sounds: normal: S1, S2 - Abdomen Abdomen: soft, non tender, no guarding, no rigid, no rebound - Genitourinary no testicular masses testicles present - Integumentary normal turgor - Neurologic no disoriented, no combative - Musculoskeletal normal gait - Psychiatric oriented to time, oriented to person, oriented to place, speech is normal, memory intact Breast Exam: Asymmetry of the breast/scar right breast from prior chest tube placement pneumothorax as a infant; weight breast smaller than left breast Palpation: Right breast: Multi-positional exam but appears to be gynecomastia behind the nipple areolar complex other dominant masses or nodules of concern Right axilla: No adenopathy of concern Left breast: Multi-positional exam what appears to be gynecomastia behind the nipple areolar complex, this is larger than in the right breast, no other dominant masses or nodules of concern Left axilla: No adenopathy of concern Genital examination: No lumps or masses in the right or left testicle Results Ultrasound reviewed from September 2022 Assessment and Plan Assessment: Impression: Probable bilateral symptomatic, gynecomastia Hormone imbalance/obtain hormone levels from official greeter Plan: Bilateral mammogram/ultrasound of the breast Consider ultrasound-guided core biopsy Obtain hormone levels from official greeter CC: Dr. Wilbur Pineda
--- NOTE | 2023-06-27 10:48 | P.PN ---
Progress Note - Text Progress Note Date: 06/27/23 Results revealed all done on 06-20-23 A1C: 5.7 Luteinizing hormone: 3.09, normal 1.6-15.2 Follicle stimulating hormone: 2.4, normal 1.6-8 testosterone level: 29.58 low prolactin: 8.5 normal 8-15
== END ==
LOC: WWCWWP 10:03
PROVIDERS: ATTEND Surgery
DX: E11.9 Type 2 diabetes mellitus without complications (principal); F32.A Depression, unspecified; F41.9 Anxiety disorder, unspecified; G40.909 Epilepsy, unspecified, not intractable, without status epilepticus; I10 Essential (primary) hypertension; N62 Hypertrophy of breast; F17.200 Nicotine dependence, unspecified, uncomplicated; Z80.1 Family history of malignant neoplasm of trachea, bronchus and lung; Z87.442 Personal history of urinary calculi; Z88.1 Allergy status to other antibiotic agents; Z88.2 Allergy status to sulfonamides; Z79.891 Long term (current) use of opiate analgesic; Z88.6 Allergy status to analgesic agent; Z79.2 Long term (current) use of antibiotics; Z90.49 Acquired absence of other specified parts of digestive tract

== ENCOUNTER → 2023-07-11 | Outpatient (CLI) | payer MEDICARE, OTHER ==
--- NOTE | 2023-07-11 14:34 | MM ---
Reason for Exam: Clinical finding. Baseline mammogram. Indicated Problems: Lump or thickening of the left side. Prior Study Comparison: Patient's first Mammogram. Tissue Density: The breast tissue is almost entirely fat. Findings: Analyzed By CAD. Bilateral gynecomastia noted. No suspicious masses. Postoperative changes right breast. Bilateral ultrasound recommended. Overall Assessment: Incomplete: need additional imaging evaluation, BI-RAD 0 Management: Diagnostic Breast Ultrasound of both breasts. . Results were given to the patient verbally at the time of exam. Patient should continue monthly self-breast exams. A clinical breast exam by your physician is recommended on an annual basis. This exam should not preclude additional follow-up of suspicious palpable abnormalities. Note on Anne scores and lifetime risk: 1. A Anne score greater than 3% is considered moderate risk. If this is the case, consider specialist referral to assess eligibility for a risk reducing agent. 2. If overall lifetime risk for the development of breast cancer is 20% or higher, the patient may qualify for future screening with alternating mammogram and breast MRI. Electronically signed and approved by: Roberto Mcdowell M.D. Radiologis
--- NOTE | 2023-07-11 14:38 | USB ---
Reason for Exam: Clinical finding. Technique: Method: Whole Breast Handheld. Findings: The whole breast of both breasts and the retroareolar of both breasts were scanned. There is bilateral gynecomastia noted. Surgical correlation advised. No suspicious mass.. Overall Assessment: Benign, BI-RAD 2 Management: Surgical Consultation of both breasts. A clinical breast exam by your physician is recommended on an annual basis and results should be correlated with mammographic findings. This exam should not preclude additional follow-up of suspicious palpable abnormalities. Results were given to the patient verbally at the time of exam. Electronically signed and approved by: Roberto Mcdowell M.D. Radiologis
== END | disposition home or self-care (01) ==
LOC: RADMAMWWP 08:23
PROVIDERS: ATTEND Surgery
DX: R92.313 Mammographic fatty tissue density, bilateral breasts (principal); N63.10 Unspecified lump in the right breast, unspecified quadrant; N63.20 Unspecified lump in the left breast, unspecified quadrant
CPT/HCPCS: 77062; 77066

== ENCOUNTER → 2023-07-25 | Outpatient (CLI) | payer MEDICARE, OTHER ==
[2023-07-25 13:52] VITALS: BP 128/82; PULSE 72; RESP 16
--- NOTE | 2023-07-25 13:53 | P.PN ---
Subjective Progress Note Date: 07/25/23 07-25-23 History of Present Illness H&P Date: Chief Complaint: Breast pain Edilberto is a 42 year old male seen regarding pain in his breast. He was seen on 06-27-23. He underwent a bilateral breast ultrasound on 2622 which revealed an irregular heterogeneous tiny hypoechoic area behind the left nipple this measured approximately 9 mm in the long axis. It was felt that this represented gynecomastia. He did not at that time have any right breast lesions of concern. He statea about 1 year ago he hit his left breast and than noticed pain behind the left nipple. It has increased in size in the past three months, the tenderness has also increased. It hurts when he touches it. He was treated with amoxicillin and no resolution. It was not warm or red to touch. He has not had any surgery on his breast. He was recently diagnosed with diabetes. He has lost weight recently from 247 to 230. 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 His testosterone levels were measured by endocrine, told testosterone low. 25.9 normal 252-900 He has not noted any testicular masses He underwent a bilateral mammogram and ultrasound on 07-11-23 findings consis tent with gynecomastia. He has decreased his methadone from as high as 110 down to 51. He goes to [place] daily to get his methadone. He is complaining of pain in his breast if it is touched. The left side is the worst. It has increased in size. He started on testosterone several weeks ago. 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 roof of his mouth Medical History: kidney stones (30 in the past) anxiety/depression PTSD pre-diabetic ADHD Social History: nicotine: 1/2 PPD alcohol: stopped 5 eyars ago drugs: stopped 15 years ago - Constitutional Constitutional: Reports sweats - EENT Eyes: denies blurred vision, denies pain Ears: left: tinnitus, bilateral: decreased hearing Ears, nose, mouth and throat: Reports headache, Denies sore throat - Breasts Breasts: bilateral: as per HPI - Cardiovascular Cardiovascular: Reports chest pain, Denies shortness of breath - Respiratory Respiratory: Denies cough - Gastrointestinal Gastrointestinal: Reports constipation, Denies abdominal pain, Denies diarrhea, Denies nausea, Denies vomiting - Genitourinary (Male) Genitourinary: Reports kidney stones - Musculoskeletal Comment: stopped since stopped Lipitor - Integumentary Integumentary: Reports pruritus - Psychiatric Psychiatric: Reports anxiety, Reports depression - Endocrine Endocrine: Reports as per HPI - Hematologic/Lymphatic Comment: none - Allergic/Immunologic Allergic/Immunologic: Reports seasonal allergies Past Medical History Past Medical History: Hypertension, Musculoskeletal Disorder, Seizure Disorder Additional Past Medical History / Comment(s): HX SEIZURE X2, D/T LOW K+ LEVEL 12/2012 AND SEIZURE 2013., KIDNEY STONE, BACK PAIN, MOUTH TUMORS, degenerative disc disease of the cervical spine History of Any Multi-Drug Resistant Organisms: MRSA Date of last positivie culture/infection: 06/19/16 MDRO Source:: right leg Past Surgical History: Cholecystectomy, Hernia Repair Additional Past Surgical History / Comment(s): 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 POSSIBLE HEMORRHOIDS Past Anesthesia/Blood Transfusion Reactions: Motion Sickness Past Psychological History: ADD/ADHD, Anxiety, Depression, PTSD Past Alcohol Use History: Occasional Past Drug Use History: Marijuana, Prescription Drug Abuse - Past Family History Father Family Medical History: Coronary Artery Disease (CAD), Myocardial Infarction ([place]) Additional Family Medical History / Comment(s): Father is 60 years of age and is status post 4 vessel CABG. Mother Family Medical History: No Reported History Additional Family Medical History / Comment(s): Mother is alive at age 72. Medications and Allergies Home Medications Medication Instructions Recorded Confirmed Type QUEtiapine [SEROquel] 200 mg PO HS 06/16/17 06/16/17 History Atorvastatin [Lipitor] 10 mg PO HS 06/27/23 06/27/23 History Cholecalciferol [Vitamin D3 (25 25 mcg PO DAILY 06/27/23 06/27/23 History Mcg = 1000 Iu)] Methadone [Dolophine] 57 mg PO DAILY 06/27/23 06/27/23 History Vortioxetine Hydrobromide 20 mg PO DAILY 06/27/23 06/27/23 History [Trintellix] diazePAM [Valium] 2 mg PO Q8HR PRN 06/27/23 06/27/23 History Allergies Allergy/AdvReac Type Severity Reaction Status Date / Time cephalexin [From Keflex] Allergy Unknown Verified 06/27/23 10:16 gabapentin Allergy Unknown Verified 06/27/23 10:16 ibuprofen [From Motrin] Allergy Rash/Hives, Verified 06/27/23 10:16 Stomach pain sulfamethoxazole Allergy Unknown Verified 06/27/23 10:16 [From Bactrim] trimethoprim [From Bactrim] Allergy Unknown Verified 06/27/23 10:16 vancomycin Allergy Unknown Verified 06/27/23 10:16 Objective - Vital Signs Vital signs: Vital Signs Temp Pulse 72 07/25/23 13:27 Resp 16 07/25/23 13:27 BP 128/82 07/25/23 13:27 Pulse Ox 96 07/25/23 13:27 FiO2 Intake & Output 07/24/23 07/25/23 07/25/23 18:59 06:59 18:59 Weight 105.233 kg - Constitutional General appearance: Present: cooperative - EENT Eyes: Present: edentulous ENT: Present: hearing grossly normal - Neck Neck: Present: normal ROM - Respiratory Respiratory: bilateral: CTA - Cardiovascular Heart sounds: normal: S1, S2 - Integumentary Integumentary: Present: normal turgor - Musculoskeletal Musculoskeletal: Present: gait normal - Psychiatric Psychiatric: Present: A&O x's 3, appropriate affect, intact judgment & insight - Additional findings Additional findings: Breast Exam: Asymmetry of the breast/scar right breast from prior chest tube placement pneumothorax as a infant; weight breast smaller than left breast Palpation: Right breast: Multi-positional exam but appears to be gynecomastia behind the nipple areolar complex other dominant masses or nodules of concern Right axilla: No adenopathy of concern Left breast: Multi-positional exam what appears to be gynecomastia behind the nipple areolar complex, this is larger than in the right breast, no other dominant masses or nodules of concern, very tender to palpation Left axilla: No adenopathy of concern testicular exam no masses bilateral Assessment and Plan Assessment: Impression: Probable bilateral symptomatic, gynecomastia Hormone imbalance/obtain hormone levels from catheter builder; done low testosterone level bilateral mammogram and ultrasound 07-11-23 consistent with gynecomastia Plan: Biopsy probable gynecomastia left breast Follow up after core biopsy The patient would like to have the symptomatic left breast gynecomastia removed, we would hold off on the right side surgery as it is not as large as the left right now and not a symptomatic CC: Dr. Wilbur Pineda
== END ==
LOC: WWCWWP 13:13
PROVIDERS: ATTEND Surgery
DX: N62 Hypertrophy of breast (principal); N64.4 Mastodynia; I10 Essential (primary) hypertension; E11.9 Type 2 diabetes mellitus without complications; F32.A Depression, unspecified; F41.9 Anxiety disorder, unspecified; F43.10 Post-traumatic stress disorder, unspecified; F90.9 Attention-deficit hyperactivity disorder, unspecified type; F98.8 Other specified behavioral and emotional disorders with onset usually occurring in childhood and adolescence; F17.210 Nicotine dependence, cigarettes, uncomplicated; G40.909 Epilepsy, unspecified, not intractable, without status epilepticus; Z87.442 Personal history of urinary calculi; Z88.1 Allergy status to other antibiotic agents; Z88.2 Allergy status to sulfonamides; Z88.6 Allergy status to analgesic agent; Z79.899 Other long term (current) drug therapy; Z88.8 Allergy status to other drugs, medicaments and biological substances

== ENCOUNTER → 2023-08-21 | Day surgery (SDC) | payer MEDICARE, OTHER ==
--- NOTE | 2023-08-28 14:13 | USB ---
Prior Study Comparison: 07/11/2023 Bilateral MG 3D diag mammo w/cad [facility], [facility]. Pathology Description: Location: retroareolar. Cores: 5 Gauge: 13 The procedure of ultrasound guided core biopsy was explained to the patient. Benefits, alternatives, and risks were discussed. An informed consent was then obtained. A timeout was performed. The patient was placed in supine positioning for imaging and for the procedure. The overlying skin was prepped and draped in usual sterile fashion. Lidocaine was used as anesthetic into the skin and subcutaneous tissue up to area of concern in the left breast. A small skin elise was made with surgical scalpel. Under ultrasound guidance, a 12-gauge vacuum assisted biopsy gun device was used to obtain 5 core samples. No clip was placed in the subareolar breast biopsy location. The patient tolerated the procedure well without any immediate complication. The patient was kept in the radiology department for short stay after the procedure and then discharged home in stable condition. Impression: Successful ultrasound guided core biopsy of area of concern in the left breast, full pathology results to follow. Recommendations: 1. Recommendations are pending pathology results. Pathology Results: Result: Benign, Gynecomastia. LEFT BREAST, POSTERIOR NIPPLE, ULTRASOUND GUIDED NEEDLE CORE BIOPSY: Nodular gynecomastia with usual ductal hyperplasia and fibrosis. Overall Assessment: Benign Management: Clinical Management of the left breast. Electronically signed and approved by: Juan José Rogers D.O. Radiologis
== END ==
LOC: RADUSWWP 12:52
PROVIDERS: ATTEND Surgery
DX: N62 Hypertrophy of breast (principal); N60.32 Fibrosclerosis of left breast; N63.21 Unspecified lump in the left breast, upper outer quadrant
CPT/HCPCS: 88305

== ENCOUNTER → 2023-08-29 | Outpatient (CLI) | payer MEDICARE, OTHER ==
--- NOTE | 2023-08-29 12:10 | P.PN ---
Subjective Progress Note Date: 08/29/23 Principal diagnosis: symptomatic left breast gynecomastia Breast pain Edilberto is a 42 year old male seen regarding pain in his breast. He was seen on 06-27-23. He underwent a bilateral breast ultrasound on 2622 which revealed an irregular heterogeneous tiny hypoechoic area behind the left nipple this measured approximately 9 mm in the long axis. It was felt that this represented gynecomastia. He did not at that time have any right breast lesions of concern. He statea about 1 year ago he hit his left breast and than noticed pain behind the left nipple. It has increased in size in the past three months, the tenderness has also increased. It hurts when he touches it. He was treated with amoxicillin and no resolution. It was not warm or red to touch. He has not had any surgery on his breast. He was recently diagnosed with diabetes. He has lost weight recently from 247 to 230. 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 His testosterone levels were measured by endocrine, told testosterone low, 25.9 normal [id number] He has not noted any testicular masses He underwent a bilateral mammogram and ultrasound on 07-11-23 findings consistent with gynecomastia. He has decreased his methadone from as high as 110 down to 51. He goes to [place] daily to get his methadone. He is complaining of pain in his breast if it is touched. The left side is the worst. It has increased in size. He started on testosterone several weeks ago. 08-29-23 The patient has lowered his methadone, and at this time is not having any pain in his breast related to the gynecomastia. He did have an ultrasound core biopsy of the left breast [id number] which was positive for gynecomastia. The patient has had two testosterone treatments since his last visit. The patient as this time would like to avoid surgery. 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 roof of his mouth Medical History: kidney stones (30 in the past) anxiety/depression PTSD pre-diabetic ADHD Social History: nicotine: 1/2 PPD alcohol: stopped 5 eyars ago drugs: stopped 15 years ago - Constitutional Constitutional: Reports sweats - EENT Eyes: denies blurred vision, denies pain Ears: left: tinnitus, bilateral: decreased hearing Ears, nose, mouth and throat: Reports headache, Denies sore throat - Breasts Breasts: bilateral: as per HPI - Cardiovascular Cardiovascular: Reports chest pain, Denies shortness of breath - Respiratory Respiratory: Denies cough - Gastrointestinal Gastrointestinal: Reports constipation, Denies abdominal pain, Denies diarrhea, Denies nausea, Denies vomiting - Genitourinary (Male) Genitourinary: Reports kidney stones - Musculoskeletal Comment: stopped since stopped Lipitor - Integumentary Integumentary: Reports pruritus - Psychiatric Psychiatric: Reports anxiety, Reports depression - Endocrine Endocrine: Reports as per HPI - Hematologic/Lymphatic Comment: none - Allergic/Immunologic Allergic/Immunologic: Reports seasonal allergies Past Medical History Past Medical History: Hypertension, Musculoskeletal Disorder, Seizure Disorder Additional Past Medical History / Comment(s): HX SEIZURE X2, D/T LOW K+ LEVEL 12/2012 AND SEIZURE 2013., KIDNEY STONE, BACK PAIN, MOUTH TUMORS, degenerative disc disease of the cervical spine History of Any Multi-Drug Resistant Organisms: MRSA Date of last positivie culture/infection: 06/19/16 MDRO Source:: right leg Past Surgical History: Cholecystectomy, Hernia Repair Additional Past Surgical History / Comment(s): 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 POSSIBLE HEMORRHOIDS Past Anesthesia/Blood Transfusion Reactions: Motion Sickness Past Psychological History: ADD/ADHD, Anxiety, Depression, PTSD Past Alcohol Use History: Occasional Past Drug Use History: Marijuana, Prescription Drug Abuse - Past Family History Father Family Medical History: Coronary Artery Disease (CAD), Myocardial Infarction ([place]) Additional Family Medical History / Comment(s): Father is 60 years of age and is status post 4 vessel CABG. Mother Family Medical History: No Reported History Additional Family Medical History / Comment(s): Mother is alive at age 72. Medications and Allergies Home Medications Medication Instructions Recorded Confirmed Type QUEtiapine [SEROquel] 200 mg PO HS 06/16/17 06/16/17 History Atorvastatin [Lipitor] 10 mg PO HS 06/27/23 06/27/23 History Cholecalciferol [Vitamin D3 (25 25 mcg PO DAILY 06/27/23 06/27/23 History Mcg = 1000 Iu)] Methadone [Dolophine] 57 mg PO DAILY 06/27/23 06/27/23 History Vortioxetine Hydrobromide 20 mg PO DAILY 06/27/23 06/27/23 History [Trintellix] diazePAM [Valium] 2 mg PO Q8HR PRN 06/27/23 06/27/23 History Allergies Allergy/AdvReac Type Severity Reaction Status Date / Time cephalexin [From Keflex] Allergy Unknown Verified 06/27/23 10:16 gabapentin Allergy Unknown Verified 06/27/23 10:16 ibuprofen [From Motrin] Allergy Rash/Hives, Verified 06/27/23 10:16 Stomach pain sulfamethoxazole Allergy Unknown Verified 06/27/23 10:16 [From Bactrim] trimethoprim [From Bactrim] Allergy Unknown Verified 06/27/23 10:16 vancomycin Allergy Unknown Verified 06/27/23 10:16 Objective - Vital Signs Vital signs: Vital Signs Temp 97.8 F 08/29/23 11:49 Pulse 91 08/29/23 11:49 Resp 17 08/29/23 11:49 BP 129/88 08/29/23 11:49 Pulse Ox 97 08/29/23 11:49 FiO2 Intake & Output 08/28/23 08/29/23 08/29/23 18:59 06:59 18:59 Weight 104.326 kg - Constitutional General appearance: Present: cooperative - EENT Eyes: Present: EOMI ENT: Present: hearing grossly normal - Neck Neck: Present: normal ROM - Respiratory Respiratory: bilateral: CTA - Cardiovascular Heart sounds: normal: S1, S2 - Gastrointestinal General gastrointestinal: Present: soft - Integumentary Integumentary: Present: normal turgor - Musculoskeletal Musculoskeletal: Present: gait normal - Psychiatric Psychiatric: Present: A&O x's 3, appropriate affect, intact judgment & insight - Additional findings Additional findings: Breast Exam: Asymmetry of the breast/scar right breast from prior chest tube placement pneumothorax as a infant; right breast smaller than left breast; scar related to poor biopsy healing well left breast Palpation: Right breast: Multi-positional exam but appears to be gynecomastia behind the nipple areolar complex no other dominant masses or nodules of concern Right axilla: No adenopathy of concern Left breast: Multi-positional exam what appears to be gynecomastia behind the nipple areolar complex, this is larger than in the right breast, no other dominant masses or nodules of concern, tenderness resolved Left axilla: No adenopathy of concern Assessment and Plan Assessment: Impression: Probable bilateral symptomatic, gynecomastia improved Left breast biopsy gynecomastia Plan: Bilateral gynecomastia The patient has decreased pain since he has decreased his methadone intake and therefore would like to avoid surgery at this time Patient follow-up in 6 months for examination Patient to follow up sooner any questions or concerns CC: Dr. Wilbur Pineda
[2023-08-29 12:13] VITALS: BP 129/88; PULSE 91; RESP 17; TEMP 97.8
== END ==
LOC: WWCWWP 11:07
PROVIDERS: ATTEND Surgery
DX: N64.4 Mastodynia (principal); N20.0 Calculus of kidney; N62 Hypertrophy of breast; E11.9 Type 2 diabetes mellitus without complications; I10 Essential (primary) hypertension; F17.200 Nicotine dependence, unspecified, uncomplicated; F32.A Depression, unspecified; G40.909 Epilepsy, unspecified, not intractable, without status epilepticus; F11.20 Opioid dependence, uncomplicated; F41.9 Anxiety disorder, unspecified; Z88.6 Allergy status to analgesic agent; Z90.49 Acquired absence of other specified parts of digestive tract; Z87.442 Personal history of urinary calculi; Z88.2 Allergy status to sulfonamides; Z88.1 Allergy status to other antibiotic agents; Z91.09 Other allergy status, other than to drugs and biological substances; Z88.3 Allergy status to other anti-infective agents